=== PATIENT | male | born 1950 | race Caucasian/White ===

== ENCOUNTER 2019-12-27 09:25 | Day surgery (SDC) | payer MEDICARE, OTHER, SELFPAY ==
[2019-12-21 09:46] VITALS: BMI 29.7
--- NOTE | 2019-12-24 12:01 | HO.ANESPROP2 ---
Documented by User: Misty Rosario 12/24/19 14:34 HPI - Anesthesia Eval Consult details Narrative: 69yo M for Colonoscopy [facility] Past Medical History Medical History (Updated 12/21/19 @ 09:36 by Ana Somers) Anxiety CAD (coronary artery disease) Diabetes Elevated cholesterol History of prostate cancer HTN (hypertension) Myocardial infarction On beta huy at home SLY (obstructive sleep apnea) Surgical History Surgical History (Updated 12/21/19 @ 09:36 by Ana Somers) History of surgical removal of pilonidal cyst Hx of colonoscopy Hx of prostatectomy Social History Social History Advance Directives: No Narrative Narrative: Follows cardiology yearly. Last visit 11/2018. Stable/baseline per OV note. Meds Allergies Allergy/AdvReac Type Severity Reaction Status Date / Time No Known Allergies Allergy Mild NONE Verified 12/27/19 09:37 Home Medications Medication Instructions Recorded Confirmed Type aspirin [Aspir-81] 81 mg PO DAILY 12/21/19 12/21/19 History atorvastatin 80 mg PO DAILY 12/21/19 12/21/19 History citalopram 20 mg PO DAILY 12/21/19 12/21/19 History lorazepam See Rx Instructions .ROUTE 12/21/19 12/21/19 History .COMPLEX PRN metformin 500 mg PO BID 12/21/19 12/21/19 History metoprolol tartrate 25 mg PO DAILY 12/21/19 12/27/19 History Exam Exam Date and Time: December 24, 2019 1201 Height,Weight and Vital Signs: Height 5 ft 9 in Weight 91.172 kg Pertinent Lab Results Pertinent Lab Results: EKG 2019 NSR @ 80. ?LAE Documented by User: Shelli Fish 12/27/19 09:58 [facility] Past Medical History Medical History (Updated 12/21/19 @ 09:36 by Ana Somers) Anxiety CAD (coronary artery disease) Diabetes Elevated cholesterol History of prostate cancer HTN (hypertension) Myocardial infarction On beta huy at home SLY (obstructive sleep apnea) Surgical History Surgical History (Updated 12/21/19 @ 09:36 by Ana Somers) History of surgical removal of pilonidal cyst Hx of colonoscopy Hx of prostatectomy Social History Social History Advance Directives: No Meds Allergies Allergy/AdvReac Type Severity Reaction Status Date / Time No Known Allergies Allergy Mild NONE Verified 12/27/19 09:37 Home Medications Medication Instructions Recorded Confirmed Type aspirin [Aspir-81] 81 mg PO DAILY 12/21/19 12/21/19 History atorvastatin 80 mg PO DAILY 12/21/19 12/21/19 History citalopram 20 mg PO DAILY 12/21/19 12/21/19 History lorazepam See Rx Instructions .ROUTE 12/21/19 12/21/19 History .COMPLEX PRN metformin 500 mg PO BID 12/21/19 12/21/19 History metoprolol tartrate 25 mg PO DAILY 12/21/19 12/27/19 History Exam Airway Mallampati Class: II TM Dist: >3cm Neck ROM: Full Loose/Missing/Broken Teeth: No Heart: RRR Lungs: CTA BL Assessment and Plan Assessment Anesthesia Assessment: Anesthesia Plan Discussed and Consent Obtained Final Anesthetic Review NPO: Yes (Sip water with meds) ASA Class: II Final Preanesthetic Review: No Changes in Pt Med Stat, Meds & Allergies Reviewed, Consent Obtained/Reviewed and Anes Risks/Benef Reviewed Patient Risk: Low Procedure Risk: Low Anesthetic Plan Anesthetic Plan: MAC: Disposition: Standard PACU
[2019-12-27 10:03] LABS: Glucose, Whole Blood 101 mg/dL (60-115)
[2019-12-27] MEDS: Lactated Ringers 1,000 ML 100 ML IVCONT (10:10)
[2019-12-27 10:59] VITALS: BP 99/55; PULSE 54; RESP 12; TEMP 36.2; O2SAT 94
--- NOTE | 2019-12-27 11:03 | HO.POSTANES ---
Post Anesthesia Evaluation Post Anesthesia Evaluation Vital Signs: stable Anesthesia: Monitored
[2019-12-27 11:14] VITALS: BP 115/75; O2SAT 96
--- NOTE | 2019-12-27 11:20 | OP_ITS ---
SURGEON: Vahe Schreiber MD PREOPERATIVE DIAGNOSIS: Colorectal cancer screening. POSTOPERATIVE DIAGNOSIS: PROCEDURE PERFORMED: Colonoscopy to the cecum and terminal ileum with snare polypectomy, and placement of resolution clips x2. ESTIMATED BLOOD LOSS: COMPLICATIONS: ANESTHESIA: Monitored anesthesia care. ASSISTANTS: SPECIMENS: POSTOPERATIVE DIAGNOSES: Colorectal cancer screening, colon polyps, diverticulosis and internal hemorrhoids. DESCRIPTION OF PROCEDURE: The patient was placed in the left lateral decubitus position. The digital rectal exam revealed no abnormalities. The Olympus video pediatric colonoscope was entered into the rectum and advanced easily to the cecum. Once in the cecum, I did identify normal-appearing cecal pouch with appendiceal orifice and a normal-appearing ileocecal valve. The terminal ileum was cannulated and appeared normal. Scope was withdrawn back in the colon. The entire cecum and ileocecal valve appeared normal. The scope was slowly withdrawn assessing all mucosal surfaces carefully. Preparation was excellent. At 20 cm, were 2 approximately 6 mm polyps, which were each snared and recovered by suction. At least one of them appeared to be grossly adenomatous. Both polypectomy sites appeared clean, without any sign of residual polyp nor bleeding, but I did place a resolution clip onto each site given the fact that he has to remain on aspirin in relation to underlying coronary artery disease. I did not visualize any other polyps, colitis, nor angiodysplasia. There was a moderate amount of sigmoid diverticulosis. In the rectum, scope was retroflexed visualizing internal hemorrhoids, but no other pathology. The rectal mucosa appeared normal. The scope was straightened and withdrawn from the patient. He tolerated the procedure well and was returned to the recovery area in stable condition. IMPRESSION: 1. Colon polyps, status post snare polypectomy, and placement of resolution clips. 2. Diverticulosis. 3. Internal hemorrhoids. PLAN: The results of the pathology will be checked. If these are tubular adenoma, I would recommend a followup colonoscopy in 5 years. If it is only hyperplastic, I would recommend a followup colonoscopy in 10 years. He was advised that he could resume his aspirin today. MD CHAD Gonzalze/DANIELE / [phone]
--- NOTE | 2019-12-27 11:45 | HO.POSTANES ---
Post Anesthesia Evaluation Post Anesthesia Evaluation Vital Signs: Vital Signs Temp Pulse Resp BP Pulse Ox 12/27/19 11:14 115/75 96 12/27/19 10:59 97.2 F 54 12 99/55 L 94 Anesthesia: Monitored Mental Status: Awake Pain Control: Satisfactory Nausea/Vomiting: None Hydration: Adequate Anesthesia-Related Issues: No Anes. Related Issues
== END 2019-12-27 11:58 | disposition home or self-care (01) ==
PROVIDERS: PCP Internal Medicine; Visit Provider Internal Medicine
PROC: 0DJD8ZZ Inspection of Lower Intestinal Tract, Via Natural or Artificial Opening Endoscopic (ICD-10-PCS; CPT 45378; principal; 2019-12-27 10:30)
DX: Z12.11 Encounter for screening for malignant neoplasm of colon (principal); D12.5 Benign neoplasm of sigmoid colon; K57.30 Diverticulosis of large intestine without perforation or abscess without bleeding; K64.8 Other hemorrhoids; I25.10 Atherosclerotic heart disease of native coronary artery without angina pectoris; I10 Essential (primary) hypertension; E78.5 Hyperlipidemia, unspecified; E11.9 Type 2 diabetes mellitus without complications; G47.30 Sleep apnea, unspecified; E66.9 Obesity, unspecified; Z85.46 Personal history of malignant neoplasm of prostate; Z79.82 Long term (current) use of aspirin; Z79.02 Long term (current) use of antithrombotics/antiplatelets; Z79.84 Long term (current) use of oral hypoglycemic drugs; Z79.899 Other long term (current) drug therapy
CPT/HCPCS: 45385; 82947; 88305

== ENCOUNTER 2020-01-13 10:08 | Outpatient (REF) | payer MEDICARE, OTHER, SELFPAY ==
[2020-01-13 11:14] LABS: Estimated Average Glucose 131 mg/dL; Hemoglobin A1c % 6.2 %
[2020-01-13 11:24] LABS: Glucose Fasting 113 mg/dL (60-99)
[2020-01-13 11:47] LABS: Prostate Specific Antigen < 0.05 ng/mL (<0.05-4.0)
== END 2020-01-13 10:09 | disposition home or self-care (01) ==
LOC: HO.LAB 10:08
PROVIDERS: Absent Provider Urology; PCP Internal Medicine; Visit Provider Internal Medicine
DX: E11.40 Type 2 diabetes mellitus with diabetic neuropathy, unspecified (principal); C61 Malignant neoplasm of prostate
CPT/HCPCS: 82947; 83036; 84153

== ENCOUNTER 2020-02-28 13:59 | Outpatient (REF) | payer MEDICARE, OTHER, SELFPAY ==
[2020-02-28 14:53] LABS: MANUAL DIFF FLAG NO
[2020-02-28 14:55] LABS: Basophils Percent Auto 0.2 % (0-2); Eosinophils Absolute Auto 0.2 X10*3/uL (0.0-0.4); Eosinophils Percent Auto 4.6 % (0-4); Hematocrit 44.2 % (42-52); Hemoglobin 14.9 g/dl (14.0-18.0); Imm Gran Abs Auto 0.01 X10*3/uL (0.00-0.03); Imm Gran Pct Auto 0.2 % (0.0-0.4); Lymphocytes Absolute Auto 1.8 X10*3/uL (1.2-4.9); Lymphocytes Percent Auto 39.3 % (20-40); Mean Corpuscular HGB Conc 33.7 g/dl (31.0-36.0); Mean Corpuscular Hemoglobin 30.1 pg (27.0-33.0); Mean Corpuscular Volume 89.3 fL (80-98); Mean Platelet Volume 10.9 fL (9.4-12.4); Monocytes Absolute Auto 0.7 X10*3/uL (0.1-1.2); Monocytes Percent Auto 14.8 % (2-11); Neutrophils Absolute Auto 1.9 X10*3/uL (2.0-8.3); Neutrophils Percent Auto 40.9 % (45-73); Platelet Count 186 X10*3/uL (160-400); Red Blood Count 4.95 X10*6/uL (4.60-5.80); Red Cell Distribution Width 12.4 % (11.0-16.0); White Blood Count 4.6 X10*3/uL (4.8-10.8)
[2020-02-28 15:07] LABS: Glucose Urine UA NEG (NEG); Leukocyte Esterase Urine NEG (NEG); Nitrite Urine NEG (NEG); PH 5.5 (5.0-8.0); Specific Gravity - Urine >= 1.030 (1.005-1.025); Urine Blood TRACE (NEG); Urine Ketones NEG (NEG); Urine Protein NEG (NEG-TRACE)
[2020-02-28 15:08] LABS: Appearance Urine CLEAR; Color Urine YELLOW
[2020-02-28 15:13] LABS: Estimated Average Glucose 137 mg/dL; Hemoglobin A1c % 6.4 %
[2020-02-28 15:18] LABS: RBC Urine 0 /HPF (0); WBC Urine 0 /HPF (0-4)
[2020-02-28 15:32] LABS: Alanine Aminotransferase 25 U/L (0-40); Albumin Level 4.5 g/dL (3.5-5.0); Alkaline Phosphatase 87 U/L (39-117); Anion Gap 14 (12-20); Aspartate Amino Transferase 25 U/L (5-37); Bilirubin Total 1.2 mg/dL (0.0-1.0); Blood Urea Nitrogen 22 mg/dL (9-16); Calcium 9.1 mg/dL (8.4-10.2); Carbon Dioxide 28 mmol/L (22-29); Chloride 101 mmol/L (96-108); Cholesterol 116 mg/dL; Estimated Glomerular Filt Rate > 60; Glucose Fasting 101 mg/dL (60-99); HDL Cholesterol 30 mg/dL; LDL Cholesterol Calculated 60 mg/dl; Potassium 4.5 mmol/l (3.3-5.1); Sodium 138 mmol/L (135-145); Total Protein 7.1 g/dL (6.5-8.0); Triglycerides 133 mg/dL
[2020-02-28 15:32] LABS: Creatinine Urine 184.13 mg/dL; Microalbum/Creatinine Ratio Ur 6.5 ug/mg cr
[2020-02-28 15:57] LABS: Prostate Specific Antigen < 0.05 ng/mL (<0.05-4.0)
[2020-02-28 15:58] LABS: Reflex LDLD? No
== END 2020-02-28 14:00 | disposition home or self-care (01) ==
LOC: HO.LAB 13:59
PROVIDERS: PCP Internal Medicine; Visit Provider Internal Medicine
DX: E11.40 Type 2 diabetes mellitus with diabetic neuropathy, unspecified (principal); I25.2 Old myocardial infarction; G47.33 Obstructive sleep apnea (adult) (pediatric); Z95.5 Presence of coronary angioplasty implant and graft; Z85.46 Personal history of malignant neoplasm of prostate
CPT/HCPCS: 36415; 80053; 80061; 81001; 81003; 82043; 83036; 84153; 85025

== ENCOUNTER 2020-07-27 14:25 | Emergency (ER) | payer MEDICARE, OTHER, SELFPAY ==
--- NOTE | ~2020-07-27 | MR_ITS ---
EXAMINATION: MR BRAIN WITHOUT CONTRAST CLINICAL INFORMATION: Dizziness. Evaluate posterior stroke. COMPARISON: None available. TECHNIQUE: Multiplanar, multisequence imaging of the brain was performed without intravenous contrast. FINDINGS: There is no acute infarction, mass, hemorrhage, or extra-axial collection. The ventricles, sulci, and basilar cisterns are normal in size and configuration. A few minimal nonspecific foci of T2/FLAIR hyperintensity are seen in the cerebral white matter. The flow voids of the major intracranial arteries appear intact. The bones and extracranial soft tissues are unremarkable. MR/MR head/brain wo con IMPRESSION: No acute infarct, mass lesion, intracranial hemorrhage, or evidence of hydrocephalus.
--- NOTE | ~2020-07-27 | CT_ITS ---
EXAMINATION: CT angio head neck CLINICAL INFORMATION: Dizziness. Neck pain. COMPARISON: Brain MRI 07/27/2020. TECHNIQUE: Fiber Design Engineer images were obtained. A CT angiogram of the head and neck was performed in the arterial phase after the intravenous administration of 70 mL Omnipaque 350. Pre and delayed postcontrast images of the head were also obtained. MIP reconstructions were generated in multiple orientations at the acquisition workstation. Multiple three-dimensional surface rendered images and maximum intensity projection images were generated on a dedicated 3-D lab workstation. Arterial stenoses are measured in accordance with NASCET criteria or similar method if applicable. This CT examination was performed using dose optimization techniques as appropriate, including one or more of the following: Automated exposure control, iterative reconstruction, and adjustment of technique factors (mA and/or kVp) according to patient size (this includes techniques or standardized protocols for targeted exams where dose is matched to indication/reason for exam). Total exam dose-length product 2708 mGy-cm FINDINGS: Head: There is no acute intracranial hemorrhage or abnormal extra-axial collection. Postcontrast images reveal no abnormal mass or enhancement within the intracranial compartment. No intracranial mass effect or midline shift. Lateral and third ventricles are normal. No hydrocephalus. Ortiz-white matter differentiation is preserved and there is no evidence of acute territorial infarct. The calvarium and skull base are intact. Mastoid air cells and middle ear cavities are well aerated. No active paranasal sinus disease. CT angiogram neck: The aortic arch apex is normal. Origins of the major aortic branches are widely patent. Common carotid arteries are normal. Heavily calcified atheromatous plaque involves both carotid bifurcations. No stenosis of the extracranial internal carotid arteries. The cervical segments of the vertebral arteries as well as their origins are patent. CT angiogram head: Patient motion degrades image quality on this component of the examination. Intracranial internal carotid arteries are patent. The intradural vertebral artery segments and basilar artery are patent. Posterior cerebral artery complexes are unremarkable. The anterior and middle cerebral artery complexes are suboptimally assessed. Other: Soft tissues of the neck including the thyroid gland are normal. Visualized lung apices are clear. No acute osseous finding. CT/CT angio head neck IMPRESSION: Patient motion degrades image quality therefore the diagnostic accuracy of this examination is somewhat limited. Specifically the anterior and middle cerebral artery complexes are not well assessed. Otherwise no large vessel occlusion. No stenosis of the cervical carotid or vertebral arteries. No evidence of acute territorial infarct. No abnormal intracranial mass or enhancement.
[2020-07-27 14:34] VITALS: BP 122/65; BP 142/72; PULSE 71; PULSE 82; RESP 18; TEMP 36.6; O2SAT 98; O2SAT 99; BMI 31.9
[2020-07-27 14:41] VITALS: BP 120/61; PULSE 70; RESP 17; TEMP 36.6; O2SAT 98
[2020-07-27 14:42] LABS: Glucose, Whole Blood 152 mg/dL (60-115)
--- NOTE | 2020-07-27 14:48 | ECG_ITS ---
Test Reason : DIZZINESS Blood Pressure : / mmHG Vent. Rate : 074 BPM Atrial Rate : 074 BPM P-R Int : 184 ms QRS Dur : 100 ms QT Int : 436 ms P-R-T Axes : 034 031 072 degrees QTc Int : 483 ms Normal sinus rhythm Prolonged QT Abnormal ECG When compared with ECG of 06-MAY-2007 15:48, QT has lengthened Referred By: Concepcion Johnson Electronically Signed By:RAMA DEGROOT
--- NOTE | 2020-07-27 14:51 | ED_ITS ---
HPI - Dizziness General Chief Complaint: Nausea/Vomiting/Diarrhea Stated Complaint: nausea/dizzy Time Seen by Provider: 07/27/20 14:37 Source: patient and EMS Mode of arrival: EMS Limitations: no limitations History of Present Illness MD elicited complaint: dizziness, lightheadedness and difficulty walking Onset (ago): hour(s) (1pm today) Timing: sudden onset Description: room spinning and lightheadedness Context: change in body position History of similar symptoms: No Exacerbating factors: movement/ambulation and change in body position Relieving factors: nothing Associated symptoms: nausea and vomiting Associated neuro symptoms: other (difficulty walking) Related Data Home Medications Medication Instructions Recorded Confirmed aspirin [Aspir-81] 81 mg PO DAILY 12/21/19 12/21/19 atorvastatin 80 mg PO DAILY 12/21/19 12/21/19 citalopram 20 mg PO DAILY 12/21/19 12/21/19 lorazepam See Rx Instructions .ROUTE 12/21/19 12/21/19 .COMPLEX PRN metformin 500 mg PO BID 12/21/19 12/21/19 metoprolol tartrate 25 mg PO DAILY 12/21/19 12/27/19 Allergies Allergy/AdvReac Type Severity Reaction Status Date / Time No Known Allergies Allergy Mild NONE Verified 12/27/19 09:37 Review of Systems Review of Systems: Constitutional : No Weight loss, No Fever, No Chills, No Fatigue, No Malaise ENT/Mouth : No sore throat, No Rhinorrhea Eyes: No Eye Pain, No Swelling, No Redness, no vision changes Cardiovascular : No Chest Pain, No SOB, No Dyspnea on Exertion, No Orthopnea, No Edema, No Palpitations Respiratory : No Cough, No Sputum, No Wheezing Gastrointestinal : pos Nausea, pos Vomiting, No Diarrhea, No Constipation, No abdominal Pain, No Hematochezia, No Melena Genitourinary : No Dysuria, No Urinary Frequency, No Hematuria, Musculoskeletal : No joint pain, No Myalgias, No Joint Swelling Skin : No Skin Lesions, No rash Neuro : No Weakness, No Numbness, pos Dizziness, No Headache Psych : No Anxiety/Panic, No Depression Heme/Lymph: No Bruising, No Bleeding,No Lymphadenopathy Endocrine : No Polyuria, No Polydipsia All other systems reviewed and are negative PMFSH Past Medical History Attestation statement: The following information was validated with the patient. Medical History Anxiety CAD (coronary artery disease) Diabetes Elevated cholesterol History of prostate cancer HTN (hypertension) Myocardial infarction On beta huy at home SLY (obstructive sleep apnea) Surgical History (Updated 12/21/19 @ 09:36 by Ana Somers) History of surgical removal of pilonidal cyst Hx of colonoscopy Hx of prostatectomy Social History Social History (Updated 07/27/20 @ 15:01 by Concepcion Johnson DO) Smoking Status: Never smoker Use of substances other than those prescribed or required for medical reasons: No Advance Directives: No Advance Directives Information Provided: Yes Physical Exam Vital Signs: Vital Signs: Last Vital Signs Temp 98 F 07/27/20 14:41 Pulse 79 07/27/20 15:40 Resp 14 07/27/20 15:40 BP 111/60 07/27/20 15:40 Pulse Ox 98 07/27/20 14:41 Body Mass Index 31.9 Appearance: Alert. Oriented X3. No acute distress. Eyes: Pupils equal, round and reactive to light. ENT: Pharynx normal. Neck: Normal inspection. Neck supple. CVS: Normal heart rate and rhythm. Pulses normal. Respiratory: No respiratory distress. Breath sounds normal. Abdomen: Soft and nontender. Skin: Skin warm and dry. pale skin color. Normal skin turgor. Extremities: No lower extremity edema. No calf ttp Neuro: Oriented X 3. CN intact, UE intact, LE intact but cannot ambulate. No sensory deficit. NIH Stroke Scale Internal: Initial- Upon Arrival Level of Consciousness: Alert Level of Consciousness Questions: Answers both questions correctly Level of Consciousness Commands: Performs both tasks correctly Best Gaze: Normal Visual: No visual loss Facial Palsy: Normal Motor Arm (Right): No drift Motor Arm (Left): No drift Motor Leg (Right): No drift Motor Leg (Left): No drift Limb Ataxia: Present in two limbs (unable to ambulate ) Sensory: Normal Best Language: No aphasia Dysarthia: Normal Extinction and Inattention: No abnormality Score: 2 Course Course Course Narrative: enrollment coordinator aware - MRI negative CTA ordered for carotid disease given symptoms worse with bending over and some neck pain signed out to Dr. Gonzalez MDM - Dizziness [facility] Narrative Medical decision making narrative: 70 yo male with hx of DM, anxiety, HPL, CAD s/p stent to RCA in 2013 comes in with abrupt onset dizziness at 1pm c/o n/v as well no CP/SOB states he cannot walk, on exam patient is diaphoretic, BS in normal limits no CP/SOB but he cannot ambulate and orthostatics negative at this time - stat MRI ordered for posterior stroke patient to be taken upon me evaluating him in ED Lab Data Labs: Lab Results 07/27/20 Range/Units 14:38 POC Glucose 152 H (60-115) mg/dL ECG Data Attestation: I personally reviewed and interpreted this ECG as follows: ECG interpretation date: 07/27/20 ECG interpretation time: 14:57 Interpretation: Rate: 74 Rhythm: NSR [place]: normal Normal P waves. Normal TARA. Normal QRS complex. Poor R wave progression ST T wave : no SET, nonspecific , no DINO qTC: normal prior studies: no acute ischemia The study has been interpreted contemporaneously by me. . Discharge Plan Discharge Clinical Impression: Dizziness Prescriptions: No Action metformin 500 mg Tablet 500 mg PO BID RF: 0 atorvastatin 80 mg Tablet 80 mg PO DAILY RF: 0 aspirin [Aspir-81] 81 mg Tablet,Delayed Release (Dr/Ec) 81 mg PO DAILY RF: 0 citalopram 20 mg Tablet 20 mg PO DAILY RF: 0 lorazepam 0.5 mg Tablet See Rx Instructions .ROUTE .COMPLEX PRN (Reason: Anxiety) RF: 0 metoprolol tartrate 25 mg Tablet 25 mg PO DAILY RF: 0
[2020-07-27] MEDS: ondansetron HCL 4 MG/2 ML VIAL IVPUSH (15:13)
[2020-07-27 15:40] VITALS: BP 111/60; PULSE 79; RESP 14
[2020-07-27] MEDS: 0.9 % Sodium Chloride 500 ML IV (15:59)
--- NOTE | 2020-07-27 16:05 | MHC.STROKE ---
EMS PRE-NOTIFIED AT 1415 DIZZY, N/V. ONSET AT 1300. HE CANNOT SIT UP. ARRIVED AT 1425. EXAMINED BY DR MYERS AND STAT MRI ORDERED TO R/O CEREBELLAR STROKE, STILL IN THE WINDOW FOR TPA. DR ROD WAS NOTIFIED. MRI DID NOT REVEAL ANY ACUTE LESION. I DID RELAY THIS TO THE PATIENT AND HIS . HE HAS MULTIPLE RISK FACTORS FOR VASCULAR DISEASE INCLUDING ME, CAD, HTN, DM, SLY, HLD. THE PATIENT EXPLAINED THAT HE OFTEN GET DIZZY WHEN GETTING UP FROM A LYING OR SITTING POSITION. DR MYERS IS ORDERING A CTA H/N. I DID RELAY THIS INFORMATION TO DR. ROD AND I EXPLAINED THE CTA AND REASON FOR THE TEST TO THE PATIENT AND HIS . I ANSWERED ALL OF THEIR QUESTIONS. I WILL CONTINUE TO FOLLOW.
[2020-07-27 16:21] LABS: MANUAL DIFF FLAG NO
[2020-07-27 16:27] LABS: Basophils Percent Auto 0.1 % (0-2); Eosinophils Percent Auto 0.4 % (0-4); Hematocrit 37.1 % (42-52); Hemoglobin 12.6 g/dl (14.0-18.0); Imm Gran Abs Auto 0.04 X10*3/uL (0.00-0.03); Imm Gran Pct Auto 0.4 % (0.0-0.4); Lymphocytes Absolute Auto 0.8 X10*3/uL (1.2-4.9); Lymphocytes Percent Auto 8.4 % (20-40); Mean Corpuscular Hemoglobin 28.8 pg (27.0-33.0); Mean Corpuscular Volume 84.7 fL (80-98); Monocytes Absolute Auto 0.6 X10*3/uL (0.1-1.2); Neutrophils Absolute Auto 8.4 X10*3/uL (2.0-8.3); Neutrophils Percent Auto 84.7 % (45-73); Platelet Count 185 X10*3/uL (160-400); Red Blood Count 4.38 X10*6/uL (4.60-5.80); Red Cell Distribution Width 12.8 % (11.0-16.0); White Blood Count 9.9 X10*3/uL (4.8-10.8)
[2020-07-27 16:31] LABS: INTERNATIONAL NORM RATIO 1.1 (0.9-1.1); Prothrombin Time 13.2 SEC (10.8-13.0)
[2020-07-27 16:33] LABS: COVID-19 Test Negative (Negative); IDNOW Serial# 9DD0AD1C
[2020-07-27 16:33] LABS: Partial Thromboplastin Time 32.2 SEC (24.1-38.0)
[2020-07-27 16:56] LABS: Anion Gap 12 (12-20); Blood Urea Nitrogen 19 mg/dL (9-16); Calcium 9.1 mg/dL (8.4-10.2); Carbon Dioxide 26 mmol/L (22-29); Chloride 104 mmol/L (96-108); Creatinine Clr Calc Pharmacy 97.7; Estimated Glomerular Filt Rate > 60; Glucose Random 129 mg/dL (60-115); Potassium 3.6 mmol/L (3.3-5.1); Sodium 138 mmol/L (135-145)
[2020-07-27] MEDS: Meclizine HCl 25 MG TABLET PO ×2 (16:58→18:54)
[2020-07-27 17:01] LABS: Alanine Aminotransferase 16 U/L (0-40); Albumin Level 3.9 g/dL (3.5-5.0); Alkaline Phosphatase 105 U/L (39-117); Aspartate Amino Transferase 16 U/L (5-37); Bilirubin Direct 0.2 mg/dL (0.0-0.5); Bilirubin Total 0.6 mg/dL (0.0-1.0); Lipase 25 U/L (8-78); Magnesium 2.1 mg/dL (1.6-2.6); Total Protein 6.2 g/dL (6.5-8.0)
[2020-07-27 17:04] LABS: Troponin-I High Sensitivity < 3.5 ng/L (<3.5-35.0)
[2020-07-27] MEDS: iohexoL 350 MG/ML 100 ML INFUS..BTL IV (17:35)
[2020-07-27 18:36] VITALS: BP 142/83; PULSE 66; RESP 12; O2SAT 97
--- NOTE | 2020-07-27 18:38 | PC.NURSE ---
Pt reports decreased dizziness and denies nausea. Gait is somewhat unsteady. VSS, skin w/p/d, rr even and unlabored.
[2020-07-27] MEDS: LORazepam 0.5 MG TABLET PO (18:54)
== END 2020-07-27 19:13 | disposition home or self-care (01) ==
PROVIDERS: Emergency Provider Emergency Medicine; PCP Internal Medicine
DX: R42 Dizziness and giddiness (principal); R11.2 Nausea with vomiting, unspecified; R29.702 NIHSS score 2; F41.1 Generalized anxiety disorder; F43.0 Acute stress reaction; Z20.822 Contact with and (suspected) exposure to COVID-19; R26.2 Difficulty in walking, not elsewhere classified; I25.10 Atherosclerotic heart disease of native coronary artery without angina pectoris; Z79.899 Other long term (current) drug therapy
CPT/HCPCS: 36415; 70496; 70498; 70551; 80048; 80076; 82947; 83690; 83735; 84484; 85025; 85610; 85730; 87635; 93005; 96361; 96365; 96375; 99285; J2405; Q9967

== ENCOUNTER 2020-09-05 09:47 | Outpatient (REF) | payer MEDICARE, OTHER, SELFPAY ==
[2020-09-05 10:26] LABS: Estimated Average Glucose 126 mg/dL
[2020-09-05 11:22] LABS: Alanine Aminotransferase 6 U/L (0-40); Albumin Level 3.9 g/dL (3.5-5.0); Alkaline Phosphatase 148 U/L (39-117); Aspartate Amino Transferase 15 U/L (5-37); Bilirubin Direct 0.2 mg/dL (0.0-0.5); Bilirubin Total 0.4 mg/dL (0.0-1.0); Cholesterol 103 mg/dL; Glucose Fasting 107 mg/dL (60-99); HDL Cholesterol 27 mg/dL; LDL Cholesterol Calculated 55 mg/dl; Total Protein 6.4 g/dL (6.5-8.0); Triglycerides 105 mg/dL
[2020-09-05 12:20] LABS: Reflex LDLD? No
== END 2020-09-05 09:48 | disposition home or self-care (01) ==
LOC: HO.LNP 09:47
PROVIDERS: Visit Provider Internal Medicine
DX: E11.9 Type 2 diabetes mellitus without complications (principal); E78.6 Lipoprotein deficiency
CPT/HCPCS: 80061; 80076; 82947; 83036

== ENCOUNTER 2021-03-20 10:19 | Outpatient (REF) | payer MEDICARE, OTHER, SELFPAY ==
[2021-03-20 10:23] LABS: MANUAL DIFF FLAG NO
[2021-03-20 10:42] LABS: Basophils Percent Auto 0.2 % (0-2); Eosinophils Absolute Auto 0.2 X10*3/uL (0.0-0.4); Eosinophils Percent Auto 4.1 % (0-4); Hematocrit 41.8 % (42.0-52.0); Hemoglobin 14.3 g/dl (14.0-18.0); Imm Gran Abs Auto 0.03 X10*3/uL (0.00-0.03); Imm Gran Pct Auto 0.7 % (0.0-0.4); Lymphocytes Absolute Auto 1.7 X10*3/uL (1.2-4.9); Lymphocytes Percent Auto 36.7 % (20-40); Mean Corpuscular HGB Conc 34.2 g/dl (31.0-36.0); Mean Corpuscular Hemoglobin 29.7 pg (27.0-33.0); Mean Corpuscular Volume 86.9 fL (80.0-98.0); Mean Platelet Volume 11.5 fL (9.4-12.4); Monocytes Absolute Auto 0.6 X10*3/uL (0.1-1.2); Monocytes Percent Auto 13.9 % (2-11); Neutrophils Absolute Auto 2.1 x10*3/uL (2.0-8.3); Neutrophils Percent Auto 44.4 % (45-73); Platelet Count 187 X10*3/uL (160-400); Red Blood Count 4.81 X10*6/uL (4.60-5.80); Red Cell Distribution Width 12.6 % (11.0-16.0); White Blood Count 4.6 X10*3/uL (4.8-10.8)
[2021-03-20 10:43] LABS: Appearance Urine HAZY; Color Urine YELLOW; Glucose Urine UA NEG (NEG); Leukocyte Esterase Urine NEG (NEG); Nitrite Urine NEG (NEG); Specific Gravity - Urine >= 1.030 (1.005-1.025); Urine Blood TRACE (NEG); Urine Ketones NEG (NEG); Urine Protein TRACE MG/DL (NEG-TRACE)
[2021-03-20 10:57] LABS: WBC Urine 0 /HPF (0-4)
[2021-03-20 10:58] LABS: Mucus Urine 3+ /LPF; Squamous Epithelial Cell Urine 1+ /LPF
[2021-03-20 11:35] LABS: Creatinine Urine 300.09 mg/dL; Microalbum/Creatinine Ratio Ur 14.9 ug/mg cr
[2021-03-20 12:49] LABS: Estimated Average Glucose 143 mg/dL; Hemoglobin A1c % 6.6 %
[2021-03-20 12:55] LABS: Alanine Aminotransferase 24 U/L (0-40); Albumin Level 4.2 g/dL (3.5-5.0); Alkaline Phosphatase 104 U/L (39-117); Anion Gap 14 (12-20); Aspartate Amino Transferase 21 U/L (5-37); Bilirubin Total 0.7 mg/dL (0.0-1.0); Blood Urea Nitrogen 17 mg/dL (9-16); Calcium 9.6 mg/dL (8.4-10.2); Carbon Dioxide 25 mmol/L (22-29); Chloride 105 mmol/L (96-108); Estimated Glomerular Filt Rate > 60; Glucose Fasting 143 mg/dL (60-99); Potassium 3.9 mmol/L (3.3-5.1); Sodium 140 mmol/L (135-145); Total Protein 6.8 g/dL (6.5-8.0)
[2021-03-20 13:18] LABS: PSA,Total (Free>4and<10) < 0.05 ng/mL (0.00-4.00)
== END 2021-03-20 10:20 | disposition home or self-care (01) ==
LOC: HO.LNP 10:19
PROVIDERS: Visit Provider Internal Medicine
DX: R74.8 Abnormal levels of other serum enzymes (principal); E78.6 Lipoprotein deficiency; E11.40 Type 2 diabetes mellitus with diabetic neuropathy, unspecified; Z12.5 Encounter for screening for malignant neoplasm of prostate
CPT/HCPCS: 80053; 81001; 82043; 83036; 84153; 85025

== ENCOUNTER 2021-04-26 11:19 | Outpatient (REF) | payer MEDICARE, OTHER, SELFPAY ==
[2021-04-26 12:31] LABS: Blood Urea Nitrogen 17 mg/dL (9-16); Estimated Glomerular Filt Rate > 60
[2021-04-26 12:42] LABS: Prostate Specific Antigen < 0.05 ng/mL (<0.05-4.0)
== END 2021-04-26 11:20 | disposition home or self-care (01) ==
LOC: HO.LAB 11:19
PROVIDERS: PCP Internal Medicine; Visit Provider Urology
DX: Z12.5 Encounter for screening for malignant neoplasm of prostate (principal); R39.15 Urgency of urination
CPT/HCPCS: 36415; 82565; 84153; 84520

== ENCOUNTER 2021-09-27 10:46 | Outpatient (REF) | payer MEDICARE, OTHER, SELFPAY ==
[2021-09-27 11:20] LABS: Alanine Aminotransferase 18 U/L (0-40); Albumin Level 4.2 g/dL (3.5-5.0); Alkaline Phosphatase 101 U/L (39-117); Aspartate Amino Transferase 20 U/L (5-37); Bilirubin Direct 0.3 mg/dL (0.0-0.5); Bilirubin Total 0.7 mg/dL (0.0-1.0); Cholesterol 133 mg/dL; Glucose Fasting 139 mg/dL (60-99); HDL Cholesterol 27 mg/dL; LDL Cholesterol Calculated 56 mg/dl; Total Protein 6.6 g/dL (6.5-8.0); Triglycerides 253 mg/dL
[2021-09-27 11:22] LABS: Estimated Average Glucose 140 mg/dL; Hemoglobin A1c % 6.5 %
[2021-09-27 12:56] LABS: Reflex LDLD? No
== END 2021-09-27 10:47 | disposition home or self-care (01) ==
LOC: HO.LNP 10:46
PROVIDERS: Visit Provider Internal Medicine
DX: E11.9 Type 2 diabetes mellitus without complications (principal); E78.6 Lipoprotein deficiency
CPT/HCPCS: 80061; 80076; 82947; 83036

== ENCOUNTER 2022-02-22 11:40 | Outpatient (REF) | payer MEDICARE, OTHER, SELFPAY ==
[2022-02-22 11:44] LABS: MANUAL DIFF FLAG NO
[2022-02-22 12:31] LABS: Appearance Urine Clear; Color Urine Yellow; Glucose Urine UA Negative (Negative); Leukocyte Esterase Urine Negative (Negative); Nitrite Urine Negative (Negative); PH 5.5 (5.0-9.0); Urine Blood Negative (Negative); Urine Ketones Negative (Negative); Urine Protein Negative (Neg-Trace)
[2022-02-22 12:37] LABS: Bacteria Urine None Seen (None Seen); Hyaline Casts Urine 0-2 /LPF (0-2); RBC Urine 0-2 /HPF (0-2); Squamous Epithelial Cell Urine 0-2 /HPF (0-2); WBC Urine 0-5 /HPF (0-5)
[2022-02-22 12:45] LABS: Basophils Percent Auto 0.4 % (0-2); Eosinophils Absolute Auto 0.3 X10*3/uL (0.0-0.4); Eosinophils Percent Auto 4.6 % (0-4); Hematocrit 42.1 % (42.0-52.0); Hemoglobin 14.3 g/dl (14.0-18.0); Imm Gran Abs Auto 0.03 X10*3/uL (0.00-0.03); Imm Gran Pct Auto 0.5 % (0.0-0.4); Lymphocytes Absolute Auto 2.3 X10*3/uL (1.2-4.9); Lymphocytes Percent Auto 39.6 % (20-40); Mean Corpuscular Hemoglobin 29.9 pg (27.0-33.0); Mean Corpuscular Volume 88.1 fL (80.0-98.0); Mean Platelet Volume 11.3 fL (9.4-12.4); Monocytes Absolute Auto 0.6 X10*3/uL (0.1-1.2); Monocytes Percent Auto 9.8 % (2-11); Neutrophils Absolute Auto 2.6 x10*3/uL (2.0-8.3); Neutrophils Percent Auto 45.1 % (45-73); Platelet Count 210 X10*3/uL (160-400); Red Blood Count 4.78 X10*6/uL (4.60-5.80); Red Cell Distribution Width 12.4 % (11.0-16.0); White Blood Count 5.7 X10*3/uL (4.8-10.8)
[2022-02-22 13:13] LABS: Estimated Average Glucose 137 mg/dL; Hemoglobin A1c % 6.4 %
[2022-02-22 13:34] LABS: Creatinine Urine 178.18 mg/dL
[2022-02-22 14:45] LABS: Alanine Aminotransferase 18 U/L (0-40); Albumin Level 4.1 g/dL (3.5-5.0); Alkaline Phosphatase 107 U/L (39-117); Anion Gap 10 (12-20); Aspartate Amino Transferase 23 U/L (5-37); Bilirubin Total 0.6 mg/dL (0.0-1.0); Blood Urea Nitrogen 19 mg/dL (9-16); Calcium 9.2 mg/dL (8.4-10.2); Carbon Dioxide 30 mmol/L (22-29); Chloride 98 mmol/L (96-108); Cholesterol 147 mg/dL; Estimated Glomerular Filt Rate > 60; Glucose Fasting 128 mg/dL (60-99); HDL Cholesterol 26 mg/dL; LDL Cholesterol Calculated 58 mg/dl; PSA,Total (Free>4and<10) < 0.10 ng/mL (0.00-4.00); Potassium 4.2 mmol/L (3.3-5.1); Sodium 134 mmol/L (135-145); Total Protein 6.7 g/dL (6.5-8.0); Triglycerides 315 mg/dL
== END 2022-02-22 11:41 | disposition home or self-care (01) ==
LOC: HO.LNP 11:40
PROVIDERS: Visit Provider Internal Medicine
DX: Z12.5 Encounter for screening for malignant neoplasm of prostate (principal); E11.9 Type 2 diabetes mellitus without complications; E78.6 Lipoprotein deficiency
CPT/HCPCS: 80053; 80061; 81001; 82043; 83036; 84153; 85025

== ENCOUNTER 2022-05-01 10:37 | Outpatient (REF) | payer MEDICARE, OTHER, SELFPAY ==
[2022-05-01 13:54] LABS: Prostate Specific Antigen < 0.10 ng/mL (<0.05-4.0)
== END 2022-05-01 10:38 | disposition home or self-care (01) ==
LOC: HO.LAB 10:37
PROVIDERS: PCP Internal Medicine; Visit Provider Physician Assistant Surgical
DX: C61 Malignant neoplasm of prostate (principal)
CPT/HCPCS: 36415; 84153

== ENCOUNTER 2022-08-29 11:05 | Outpatient (REF) | payer MEDICARE, OTHER, SELFPAY ==
[2022-08-29 11:41] LABS: Estimated Average Glucose 134 mg/dL; Hemoglobin A1C 164.2734 umol/L; Hemoglobin A1c % 6.3 %
[2022-08-29 11:43] LABS: Alanine Aminotransferase 21 U/L (0-40); Alkaline Phosphatase 100 U/L (39-117); Aspartate Amino Transferase 27 U/L (5-37); Bilirubin Direct 0.1 mg/dL (0.0-0.5); Bilirubin Total 0.5 mg/dL (0.0-1.0); Cholesterol 198 mg/dL; Glucose Fasting 141 mg/dL (60-99); HDL Cholesterol 27 mg/dL; Total Protein 6.4 g/dL (6.5-8.0); Triglycerides 553 mg/dL
[2022-08-29 12:42] LABS: Reflex LDLD? Yes
[2022-08-31 03:34] LABS: LDL Cholesterol Direct 70 mg/dL (<100)
== END 2022-08-29 11:06 | disposition home or self-care (01) ==
LOC: HO.LNP 11:05
PROVIDERS: Visit Provider Internal Medicine
DX: E11.9 Type 2 diabetes mellitus without complications (principal); E78.6 Lipoprotein deficiency
CPT/HCPCS: 80061; 80076; 82947; 83036; 83721

== ENCOUNTER 2023-02-10 08:33 | Day surgery (SDC) | payer MEDICARE, OTHER, SELFPAY ==
[2023-02-04 13:46] VITALS: BMI 32.7
--- NOTE | 2023-02-07 08:41 | MHC.SHP ---
Pre-Procedural Eval Section A Date of Service: 02/07/23 The patient is an INPATIENT: No Changes since office visit: No Cold of Flu in the past 2 weeks, No New Medical Problems, No Changes in Medication and No Patient answered all questions The History & Physical has been completed within 30 days and I have reviewed it.: Yes Section B Chief Complaint: Age-related nuclear cataract, left eye Allergies: Allergies Allergy/AdvReac Type Severity Reaction Status Date / Time No Known Allergies Allergy Mild NONE Verified 12/27/19 09:37 Plan Diagnosis/Plan: Unchanged I have reviewed the history and physical and performed a pertinent physical examination on my patient. No changes have occurred unless specified. Time Spent With Patient Time: Total time managing care of this patient today ____ minutes.
--- NOTE | 2023-02-07 09:10 | HO.ANESPROP2 ---
Documented by User: Misty Rosario NP 02/07/23 09:10 HPI - Anesthesia Eval Consult details Narrative: 72yo M for Left Cataract Extraction IOL Insertion Medically cleared No previous cataract on record PMFSH Past Medical History Medical History Vertigo COVID-19 Arthritis Psoriasis SLY (obstructive sleep apnea) Diabetes Anxiety History of prostate cancer On beta huy at home Elevated cholesterol CAD (coronary artery disease) HTN (hypertension) Myocardial infarction Family History Family history of problems with anesthesia: Unobtainable Surgical History Surgical History H/O wisdom tooth extraction History of coronary artery stent placement History of total bilateral knee replacement Hx of colonoscopy History of surgical removal of pilonidal cyst Hx of prostatectomy History of Problems with Anesthesia: Unobtainable Social History Social History Are you a primary adult care manager to a significant other at home: No Do you presently have visiting nurse or other home services: No Alcohol intake: never Patient Tobacco Use Status: Never used Tobacco Use of substances other than those prescribed or required for medical reasons: No Have you been hit, kicked, punched, or otherwise hurt by someone within the past year? If so, by whom?: No Advance Directives: No Advance Directives Information Provided: Yes Advance Directives on File: No Recently lost weight without trying: No Nutrition Risks: No Nutritional Risk Poor oral hygiene: No Meds Allergies Allergy/AdvReac Type Severity Reaction Status Date / Time No Known Allergies Allergy Mild NONE Verified 02/10/23 10:00 Home Medications Medication Instructions Recorded Confirmed Last Taken Type aspirin 81 mg tablet,delayed 81 mg PO DAILY 12/21/19 02/10/23 Unknown History release (Aspir-) atorvastatin 80 mg tablet 80 mg PO BEDTIME 12/21/19 02/10/23 Unknown History citalopram 20 mg tablet 20 mg PO DAILY 12/21/19 02/10/23 Unknown History metformin 500 mg tablet 500 mg PO BID 12/21/19 02/10/23 Unknown History metoprolol tartrate 25 mg tablet 12.5 mg PO BID 12/21/19 02/10/23 12/27/19 08:30 History Exam Height,Weight and Vital Signs: Height 5 ft 8 in Weight 97.522 kg Assessment and Plan Assessment Anesthesia Assessment: Chart Reviewed Final Anesthetic Review Family History of Problems with Anesthesia: Unobtainable History of Problems with Anesthesia: Unobtainable Documented by User: Mirta Caceres MD 02/10/23 11:19 [facility] Past Medical History Medical History Vertigo COVID-19 Arthritis Psoriasis SLY (obstructive sleep apnea) Diabetes Anxiety History of prostate cancer On beta huy at home Elevated cholesterol CAD (coronary artery disease) HTN (hypertension) Myocardial infarction Family History Family history of problems with anesthesia: No Surgical History Surgical History H/O wisdom tooth extraction History of coronary artery stent placement History of total bilateral knee replacement Hx of colonoscopy History of surgical removal of pilonidal cyst Hx of prostatectomy History of Problems with Anesthesia: No Social History Social History Are you a primary adult care manager to a significant other at home: No Do you presently have visiting nurse or other home services: No Alcohol intake: never Patient Tobacco Use Status: Never used Tobacco Use of substances other than those prescribed or required for medical reasons: No Have you been hit, kicked, punched, or otherwise hurt by someone within the past year? If so, by whom?: No Advance Directives: No Advance Directives Information Provided: Yes Advance Directives on File: No Recently lost weight without trying: No Nutrition Risks: No Nutritional Risk Poor oral hygiene: No Meds Allergies Allergy/AdvReac Type Severity Reaction Status Date / Time No Known Allergies Allergy Mild NONE Verified 02/10/23 10:00 Home Medications Medication Instructions Recorded Confirmed Last Taken Type aspirin 81 mg tablet,delayed 81 mg PO DAILY 12/21/19 02/10/23 Unknown History release (Aspir-) atorvastatin 80 mg tablet 80 mg PO BEDTIME 12/21/19 02/10/23 Unknown History citalopram 20 mg tablet 20 mg PO DAILY 12/21/19 02/10/23 Unknown History metformin 500 mg tablet 500 mg PO BID 12/21/19 02/10/23 Unknown History metoprolol tartrate 25 mg tablet 12.5 mg PO BID 12/21/19 02/10/23 12/27/19 08:30 History Exam Height,Weight and Vital Signs: Height 5 ft 8 in Weight 97.522 kg Vital Signs Temp Pulse Resp BP Pulse Ox O2 Del Method 02/10/23 10:06 97.8 F 61 16 157/95 H 96 Room Air Pertinent Lab Results Pertinent Lab Results: Lab Results 02/10/23 Range/Units 10:10 POC Glucose 140 H (60-115) mg/dL Airway Mallampati Class: III TM Dist: >3cm Neck ROM: Full Loose/Missing/Broken Teeth: No (Denies broken, loose, missing teeth) Heart: RRR Lungs: CTAB Assessment and Plan Assessment Anesthesia Assessment: Anesthesia Plan Discussed Final Anesthetic Review Family History of Problems with Anesthesia: No History of Problems with Anesthesia: No NPO: Yes ASA Class: III Final Preanesthetic Review: No Changes in Pt Med Stat, Meds/Allgs Chart Reviewed, Consent Obtained/Reviewed and Anes Risks/Benef Reviewed Patient Risk: Intermediate Procedure Risk: Low Assessment/Block/Sedation in SS: Assess/Block/Sedation-SS Anesthetic Plan Anesthetic Plan: MAC: Disposition: Standard PACU
[2023-02-10 10:06] VITALS: BP 157/95; PULSE 61; RESP 16; TEMP 36.6; O2SAT 96
[2023-02-10 10:14] LABS: Glucose, Whole Blood 140 mg/dL (60-115)
[2023-02-10 10:15] VITALS: BMI 33.8
[2023-02-10] MEDS: Tetracaine HCl/PF 0.5% Oph Sol 4 ML DROPS 1 DROP EYE-LEFT (10:29)
[2023-02-10] MEDS: Cyclopentolate 1 % Ophth Sol 2 ML DRPBTL 1 DROP EYE-LEFT ×3 (10:30→10:46)
[2023-02-10] MEDS: Tropicamide 1 % Ophth Sol 3 ML BTL 1 DROP EYE-LEFT ×3 (10:32→10:48)
[2023-02-10] MEDS: Lactated Ringers 500 ML 50 ML IV (10:33)
[2023-02-10] MEDS: Ketorolac Tromethamine 0.5% Op 5 ML DROPS 1 DROP EYE-LEFT ×3 (10:34→10:50)
[2023-02-10] MEDS: Phenylephrine HCL 2.5% Oph SoL 2 ML BOTTLE 1 DROP EYE-LEFT ×3 (10:36→10:52)
--- NOTE | 2023-02-10 11:14 | HO.PNOPHT ---
Ophthalmology Procedure Procedure Date of Service: 02/10/23 Ophthalmology Viscoelastic: Healon Duet Dual Pack Pro Ophthalmology Lenses: TECNIS [id number] (18.5) Procedure Notes: PREOPERATIVE DIAGNOSIS: Decreased visual acuity left eye secondary to cataract POSTOPERATIVE DIAGNOSIS: Same PROCEDURE: Left cataract extraction with intraocular lens insertion SURGEON: Russ Paz M.D. ANESTHESIA: Topical/MAC ESTIMATED BLOOD LOSS: None COMPLICATIONS: None After obtaining informed consent, the patient was brought to the operation room suite and placed in the supine position. After adequate sedation per anesthesia, topical drops of Tetracaine were given to the left eye. The eye was then prepped and draped in the usual sterile fashion. The operating room microscope was then positioned over the operative eye and a lid speculum placed. A paracentesis was created. Viscoelastic was then instilled into the anterior chamber. A three plane incision was then created temporally, utilizing a 2.85 mm keratome. Capsulotomy forceps were then utilized to create a circular tear capsulotomy. Hydrodissection and hydrodelineation were carried out until adequate mobilization of the nucleus occurred. Phacoemulsification was then utilized to remove the dense central nucleus followed by removal of the cortical material utilizing the automated aspiration irrigation unit. Viscoat elastic was instilled into the posterior capsular bag followed by placement of a posterior chamber intraocular lens without difficulty. The residual Viscoat elastic was then removed utilizing the automated IA machine. The wound was check and found to be watertight. The patient tolerated the procedure well and the lid speculum was removed. Intracameral injection of Vigamox 0.1 mL followed by a subtenon injection of Kenalog-40 0.2 mL were administered. The patient will be seen in the a.m.
[2023-02-10 11:40] VITALS: BP 144/81; PULSE 56; RESP 16; TEMP 36.2; O2SAT 95
== END 2023-02-10 11:46 | disposition home or self-care (01) ==
PROVIDERS: PCP Internal Medicine; Visit Provider Ophthalmology
PROC: (CPT 66985; principal; 2023-02-10 11:20)
DX: H25.12 Age-related nuclear cataract, left eye (principal); H52.4 Presbyopia; H18.413 Arcus senilis, bilateral; H43.393 Other vitreous opacities, bilateral; I10 Essential (primary) hypertension; I25.10 Atherosclerotic heart disease of native coronary artery without angina pectoris; Z95.5 Presence of coronary angioplasty implant and graft; I25.2 Old myocardial infarction; E78.00 Pure hypercholesterolemia, unspecified; E11.9 Type 2 diabetes mellitus without complications; Z96.653 Presence of artificial knee joint, bilateral; Z79.84 Long term (current) use of oral hypoglycemic drugs; Z79.82 Long term (current) use of aspirin; Z79.899 Other long term (current) drug therapy
CPT/HCPCS: 66984; 82947; J2250; J3010; J3301; V2632

== ENCOUNTER 2023-02-24 08:54 | Day surgery (SDC) | payer MEDICARE, OTHER, SELFPAY ==
[2023-02-04 13:41] VITALS: BMI 32.7
--- NOTE | 2023-02-21 07:52 | MHC.SHP ---
Pre-Procedural Eval Section A Date of Service: 02/21/23 The patient is an INPATIENT: No Changes since office visit: No Cold of Flu in the past 2 weeks, No New Medical Problems, No Changes in Medication and No Patient answered all questions The History & Physical has been completed within 30 days and I have reviewed it.: Yes Section B Chief Complaint: Age-related nuclear cataract, left eye Allergies: Allergies Allergy/AdvReac Type Severity Reaction Status Date / Time No Known Allergies Allergy Mild NONE Verified 02/10/23 10:00 Plan Diagnosis/Plan: Unchanged I have reviewed the history and physical and performed a pertinent physical examination on my patient. No changes have occurred unless specified. Time Spent With Patient Time: Total time managing care of this patient today ____ minutes.
--- NOTE | 2023-02-21 09:59 | HO.ANESPROP2 ---
Documented by User: Misty Rosario NP 02/21/23 10:01 HPI - Anesthesia Eval Consult details Narrative: 72yo M for Right Cataract Extraction IOL Insertion Medically cleared Left eye 02/10/23: Fent 50, Midaz 1 PMFSH Past Medical History Medical History Vertigo COVID-19 Arthritis Psoriasis SLY (obstructive sleep apnea) Diabetes Anxiety History of prostate cancer On beta huy at home Elevated cholesterol CAD (coronary artery disease) HTN (hypertension) Myocardial infarction Family History Family history of problems with anesthesia: No Surgical History Surgical History H/O wisdom tooth extraction History of coronary artery stent placement History of total bilateral knee replacement Hx of colonoscopy History of surgical removal of pilonidal cyst Hx of prostatectomy History of Problems with Anesthesia: No Social History Social History Are you a primary healthcare liaison to a significant other at home: No Do you presently have visiting nurse or other home services: No Alcohol intake: never Patient Tobacco Use Status: Never used Tobacco Use of substances other than those prescribed or required for medical reasons: No Have you been hit, kicked, punched, or otherwise hurt by someone within the past year? If so, by whom?: No Advance Directives: No Advance Directives Information Provided: Yes Advance Directives on File: No Recently lost weight without trying: No Eating poorly because of decreased appetite: No Nutrition Risks: No Nutritional Risk Poor oral hygiene: No Meds Allergies Allergy/AdvReac Type Severity Reaction Status Date / Time No Known Allergies Allergy Mild NONE Verified 02/10/23 10:00 Home Medications Medication Instructions Recorded Confirmed Last Taken Type aspirin 81 mg tablet,delayed 81 mg PO DAILY 12/21/19 02/10/23 Unknown History release (Aspir-) atorvastatin 80 mg tablet 80 mg PO BEDTIME 12/21/19 02/10/23 Unknown History citalopram 20 mg tablet 20 mg PO DAILY 12/21/19 02/10/23 Unknown History metformin 500 mg tablet 500 mg PO BID 12/21/19 02/10/23 Unknown History metoprolol tartrate 25 mg tablet 12.5 mg PO BID 12/21/19 02/10/23 12/27/19 08:30 History Exam Height,Weight and Vital Signs: Height 5 ft 8 in Weight 97.522 kg Assessment and Plan Assessment Anesthesia Assessment: Chart Reviewed Final Anesthetic Review Family History of Problems with Anesthesia: No History of Problems with Anesthesia: No Documented by User: Mirta Caceres MD 02/24/23 10:57 [facility] Past Medical History Medical History Vertigo COVID-19 Arthritis Psoriasis SLY (obstructive sleep apnea) Diabetes Anxiety History of prostate cancer On beta huy at home Elevated cholesterol CAD (coronary artery disease) HTN (hypertension) Myocardial infarction Surgical History Surgical History H/O wisdom tooth extraction History of coronary artery stent placement History of total bilateral knee replacement Hx of colonoscopy History of surgical removal of pilonidal cyst Hx of prostatectomy Social History Social History Are you a primary healthcare liaison to a significant other at home: No Do you presently have visiting nurse or other home services: No Alcohol intake: never Patient Tobacco Use Status: Never used Tobacco Use of substances other than those prescribed or required for medical reasons: No Have you been hit, kicked, punched, or otherwise hurt by someone within the past year? If so, by whom?: No Advance Directives: No Advance Directives Information Provided: Yes Advance Directives on File: No Recently lost weight without trying: No Eating poorly because of decreased appetite: No Nutrition Risks: No Nutritional Risk Poor oral hygiene: No Meds Allergies Allergy/AdvReac Type Severity Reaction Status Date / Time No Known Allergies Allergy Mild NONE Verified 02/10/23 10:00 Home Medications Medication Instructions Recorded Confirmed Last Taken Type aspirin 81 mg tablet,delayed 81 mg PO DAILY 12/21/19 02/10/23 Unknown History release (Aspir-) atorvastatin 80 mg tablet 80 mg PO BEDTIME 12/21/19 02/10/23 Unknown History citalopram 20 mg tablet 20 mg PO DAILY 12/21/19 02/10/23 Unknown History metformin 500 mg tablet 500 mg PO BID 12/21/19 02/10/23 Unknown History metoprolol tartrate 25 mg tablet 12.5 mg PO BID 12/21/19 02/10/23 12/27/19 08:30 History Exam Height,Weight and Vital Signs: Height 5 ft 8 in Weight 97.522 kg Vital Signs Temp Pulse Resp BP Pulse Ox O2 Del Method 02/24/23 10:06 97.4 F 62 16 141/87 H 95 Room Air Airway Mallampati Class: III TM Dist: >3cm Neck ROM: Full Loose/Missing/Broken Teeth: No (Denies broken, loose, missing teeth) Heart: RRR Lungs: CTAB Assessment and Plan Assessment Anesthesia Assessment: Anesthesia Plan Discussed Final Anesthetic Review NPO: Yes ASA Class: III Final Preanesthetic Review: No Changes in Pt Med Stat, Meds/Allgs Chart Reviewed, Consent Obtained/Reviewed and Anes Risks/Benef Reviewed Patient Risk: Intermediate Procedure Risk: Low Assessment/Block/Sedation in SS: Assess/Block/Sedation-SS Anesthetic Plan Anesthetic Plan: MAC: Disposition: Standard PACU
--- NOTE | 2023-02-21 15:59 | MHC.SHP ---
Pre-Procedural Eval Section A Date of Service: 02/24/23 Section B Chief Complaint: Age-related nuclear cataract, left eye Allergies: Allergies Allergy/AdvReac Type Severity Reaction Status Date / Time No Known Allergies Allergy Mild NONE Verified 02/10/23 10:00 Plan I have reviewed the history and physical and performed a pertinent physical examination on my patient. No changes have occurred unless specified. Time Spent With Patient Time: Total time managing care of this patient today ____ minutes.
[2023-02-24 10:06] VITALS: BP 141/87; PULSE 62; RESP 16; TEMP 36.3; O2SAT 95
[2023-02-24] MEDS: Lactated Ringers 500 ML 50 ML IV (10:13)
[2023-02-24] MEDS: Tetracaine HCl/PF 0.5% Oph Sol 4 ML DROPS 1 DROP EYE-RIGHT (10:13)
[2023-02-24] MEDS: Cyclopentolate 1 % Ophth Sol 2 ML DRPBTL 1 DROP EYE-RIGHT ×3 (10:14→10:19)
[2023-02-24] MEDS: Tropicamide 1 % Ophth Sol 3 ML BTL 1 DROP EYE-RIGHT ×3 (10:15→10:19)
[2023-02-24] MEDS: Ketorolac Tromethamine 0.5% Op 5 ML DROPS 1 DROP EYE-RIGHT ×3 (10:15→10:19)
[2023-02-24] MEDS: Phenylephrine HCL 2.5% Oph SoL 2 ML BOTTLE 1 DROP EYE-RIGHT ×3 (10:16→10:21)
[2023-02-24 10:32] LABS: Glucose, Whole Blood 112 mg/dL (60-115)
[2023-02-24 11:22] VITALS: BP 149/81; PULSE 58; RESP 12; TEMP 36.4; O2SAT 98
--- NOTE | 2023-02-24 11:23 | HO.PNOPHT ---
Ophthalmology Procedure Procedure Date of Service: 02/24/23 Ophthalmology Viscoelastic: Healdiane Davist Dual Pack Pro Ophthalmology Lenses: TECVALERIY [id number] (18) Procedure Notes: PREOPERATIVE DIAGNOSIS: Decreased visual acuity right eye secondary to cataract POSTOPERATIVE DIAGNOSIS: Same PROCEDURE: Right cataract extraction with intraocular lens insertion SURGEON: Russ Paz M.D. ANESTHESIA: Topical/MAC ESTIMATED BLOOD LOSS: None COMPLICATIONS: None After obtaining informed consent, the patient was brought to the operating room suite and placed in the supine position. After adequate sedation per anesthesia, topical drops of Tetracaine were given to the right eye. The eye was then prepped and draped in the usual sterile fashion. The operating room microscope was then positioned over the operative eye and a lid speculum placed. A paracentesis was created. Viscoelastic was then instilled into the anterior chamber. A three plane incision was then created temporally, utilizing a 2.85 mm keratome. Capsulotomy forceps were then utilized to create a circular tear capsulotomy. Hydrodissection and hydrodelineation were carried out until adequate mobilization of the nucleus occurred. Phacoemulsification was then utilized to remove the dense central nucleus followed by removal of the cortical material utilizing the automated aspiration irrigation unit. Viscoelastic was instilled into the posterior capsular bag followed by placement of a posterior chamber intraocular lens without difficulty. The residual Viscoelastic was then removed utilizing the automated IA machine. The wound was checked and found to be watertight. The patient tolerated the procedure well and the lid speculum was removed. Intracameral injection of Vigamox 0.1 mL followed by a subtenon injection of Kenalog-40 0.2 mL were administered. The patient will be seen in the a.m.
== END 2023-02-24 11:39 | disposition home or self-care (01) ==
PROVIDERS: PCP Internal Medicine; Visit Provider Ophthalmology
PROC: (CPT 66985; principal; 2023-02-24 11:20)
DX: H25.11 Age-related nuclear cataract, right eye (principal); H52.4 Presbyopia; H43.393 Other vitreous opacities, bilateral; H18.413 Arcus senilis, bilateral; I10 Essential (primary) hypertension; I25.2 Old myocardial infarction; Z95.5 Presence of coronary angioplasty implant and graft; E78.00 Pure hypercholesterolemia, unspecified; E11.9 Type 2 diabetes mellitus without complications; Z79.84 Long term (current) use of oral hypoglycemic drugs; Z79.82 Long term (current) use of aspirin; Z79.899 Other long term (current) drug therapy
CPT/HCPCS: 66984; 82947; J2250; J3010; J3301; V2632

== ENCOUNTER 2023-02-27 10:59 | Outpatient (REF) | payer MEDICARE, OTHER, SELFPAY ==
[2023-02-27 11:03] LABS: MANUAL DIFF FLAG NO
[2023-02-27 11:09] LABS: Appearance Urine Clear; Color Urine Yellow; Glucose Urine UA Negative (Negative); Leukocyte Esterase Urine Negative (Negative); Nitrite Urine Negative (Negative); Urine Blood Trace (Negative); Urine Ketones Negative (Negative); Urine Protein Negative (Neg-Trace)
[2023-02-27 11:10] LABS: UMIC TRIGGER UACC YES
[2023-02-27 11:19] LABS: Bacteria Urine None Seen (None Seen); Basophils Percent Auto 0.3 % (0-2); Eosinophils Absolute Auto 0.2 X10*3/uL (0.0-0.4); Eosinophils Percent Auto 4.1 % (0-4); Hematocrit 42.7 % (42.0-52.0); Hemoglobin 14.2 g/dl (14.0-18.0); Hyaline Casts Urine 0-2 /LPF (0-2); Imm Gran Abs Auto 0.03 X10*3/uL (0.00-0.03); Imm Gran Pct Auto 0.5 % (0.0-0.4); Lymphocytes Percent Auto 33.4 % (20-40); Mean Corpuscular HGB Conc 33.3 g/dl (31.0-36.0); Mean Corpuscular Hemoglobin 29.3 pg (27.0-33.0); Mean Corpuscular Volume 88.2 fL (80.0-98.0); Mean Platelet Volume 11.4 fL (9.4-12.4); Monocytes Absolute Auto 0.6 X10*3/uL (0.1-1.2); Monocytes Percent Auto 10.8 % (2-11); Neutrophils Percent Auto 50.9 % (45-73); Platelet Count 188 X10*3/uL (160-400); RBC Urine 0-2 /HPF (0-2); Red Blood Count 4.84 X10*6/uL (4.60-5.80); Red Cell Distribution Width 12.2 % (11.0-16.0); Squamous Epithelial Cell Urine 0-2 /HPF (0-2); WBC Urine 0-5 /HPF (0-5); White Blood Count 5.8 X10*3/uL (4.8-10.8)
[2023-02-27 11:23] LABS: Alanine Aminotransferase 17 U/L (0-40); Albumin Level 4.3 g/dL (3.5-5.0); Alkaline Phosphatase 98 U/L (39-117); Anion Gap 11 (12-20); Aspartate Amino Transferase 20 U/L (5-37); Bilirubin Total 0.6 mg/dL (0.0-1.0); Blood Urea Nitrogen 23 mg/dL (9-16); Calcium 9.3 mg/dL (8.4-10.2); Carbon Dioxide 28 mmol/L (22-29); Chloride 103 mmol/L (96-108); Cholesterol 150 mg/dL (<200); Estimated Glomerular Filt Rate > 60; Glucose Fasting 127 mg/dL (60-99); HDL Cholesterol 37 mg/dL (>40); LDL Cholesterol Calculated 79 mg/dL (<100); Potassium 4.1 mmol/L (3.3-5.1); Sodium 138 mmol/L (135-145); Total Protein 7.2 g/dL (6.5-8.0); Triglycerides 174 mg/dL (<150)
[2023-02-27 11:33] LABS: Estimated Average Glucose 143 mg/dL; Hemoglobin A1c % 6.6 % (<6.0)
[2023-02-27 11:38] LABS: PSA,Total (Free>4and<10) < 0.10 ng/mL (0.00-4.00)
[2023-02-27 12:21] LABS: Creatinine Urine 101.65 mg/dL; Microalbum/Creatinine Ratio Ur 17.7 ug/mg cr (<30)
== END 2023-02-27 11:00 | disposition home or self-care (01) ==
LOC: HO.LNP 10:59
PROVIDERS: Visit Provider Internal Medicine
DX: Z12.5 Encounter for screening for malignant neoplasm of prostate (principal); E11.9 Type 2 diabetes mellitus without complications
CPT/HCPCS: 80053; 80061; 81001; 82043; 82570; 83036; 84153; 85025

== ENCOUNTER 2023-03-04 16:44 | Outpatient (REF) | payer MEDICARE, OTHER, SELFPAY ==
[2023-03-04 17:10] LABS: Appearance Urine Clear; Color Urine Yellow; Glucose Urine UA 500 mg/dL (Negative); Leukocyte Esterase Urine Negative (Negative); Nitrite Urine Negative (Negative); Specific Gravity - Urine 1.025 (1.005-1.025); UMIC TRIGGER UACC YES; Urine Blood Trace (Negative); Urine Ketones Negative (Negative); Urine Protein Negative (Neg-Trace)
[2023-03-04 17:30] LABS: Bacteria Urine None Seen (None Seen); Hyaline Casts Urine 0-2 /LPF (0-2); RBC Urine 0-2 /HPF (0-2); Squamous Epithelial Cell Urine 0-2 /HPF (0-2); WBC Urine 0-5 /HPF (0-5)
== END 2023-03-04 16:45 | disposition home or self-care (01) ==
LOC: HO.LNP 16:44
PROVIDERS: Visit Provider Internal Medicine
DX: R31.9 Hematuria, unspecified (principal)
CPT/HCPCS: 81001

== ENCOUNTER 2023-05-22 11:57 | Outpatient (REF) | payer MEDICARE, OTHER, SELFPAY ==
[2023-05-22 13:12] LABS: Blood Urea Nitrogen 16 mg/dL (9-16); Estimated Glomerular Filt Rate > 60
== END 2023-05-22 11:58 | disposition home or self-care (01) ==
LOC: HO.LNP 11:57
PROVIDERS: Visit Provider Internal Medicine
DX: R79.9 Abnormal finding of blood chemistry, unspecified (principal)
CPT/HCPCS: 82565; 84520

== ENCOUNTER 2023-06-06 11:58 | Day surgery (SDC) | payer MEDICARE, OTHER, SELFPAY ==
--- NOTE | 2023-06-06 12:53 | HO.ANESPROP2 ---
[facility] Past Medical History Medical History Vertigo COVID-19 Arthritis Psoriasis SLY (obstructive sleep apnea) Diabetes Anxiety History of prostate cancer On beta huy at home Elevated cholesterol CAD (coronary artery disease) HTN (hypertension) Myocardial infarction Family History Family history of problems with anesthesia: No Surgical History Surgical History H/O wisdom tooth extraction History of coronary artery stent placement History of total bilateral knee replacement Hx of colonoscopy History of surgical removal of pilonidal cyst Hx of prostatectomy History of Problems with Anesthesia: No Social History Social History Are you a primary care management assistant to a significant other at home: No Do you presently have visiting nurse or other home services: No Alcohol intake: never Patient Tobacco Use Status: Never used Tobacco Advance Directives: No Advance Directives Information Provided: Yes Meds Allergies Allergy/AdvReac Type Severity Reaction Status Date / Time No Known Allergies Allergy Mild NONE Verified 02/10/23 10:00 Active Medications: Current Medications Sodium Biphosphate/Sodium Phosphate (Sodium Phosphate,[place]-Dibasic 133 Ml Enema) 133 ml DE ONCE PRN PRN Reason: Poor Colonoscopy Prep Results Home Medications Medication Instructions Recorded Confirmed Last Taken Type aspirin 81 mg tablet,delayed 81 mg PO DAILY 12/21/19 02/10/23 Unknown History release (Aspir-) atorvastatin 80 mg tablet 80 mg PO BEDTIME 12/21/19 02/10/23 Unknown History citalopram 20 mg tablet 20 mg PO DAILY 12/21/19 02/10/23 Unknown History metformin 500 mg tablet 500 mg PO BID 12/21/19 02/10/23 Unknown History metoprolol tartrate 25 mg tablet 12.5 mg PO BID 12/21/19 02/10/23 12/27/19 08:30 History Exam Airway Mallampati Class: III TM Dist: <=3cm Neck ROM: Full Loose/Missing/Broken Teeth: No Heart: rrr Lungs: cta b/l Assessment and Plan Final Anesthetic Review Family History of Problems with Anesthesia: No History of Problems with Anesthesia: No NPO: Yes ASA Class: III Final Preanesthetic Review: No Changes in Pt Med Stat, Meds/Allgs Chart Reviewed, Consent Obtained/Reviewed and Anes Risks/Benef Reviewed Patient Risk: Intermediate Procedure Risk: Intermediate Anesthetic Plan Anesthetic Plan: MAC: Disposition: Standard PACU
[2023-06-06 12:58] VITALS: BMI 33.1
[2023-06-06 13:16] VITALS: BP 149/95; PULSE 70; RESP 16; TEMP 36.7; O2SAT 98
[2023-06-06 13:27] LABS: Glucose, Whole Blood 105 mg/dL (60-115)
[2023-06-06] MEDS: Lactated Ringers 1,000 ML 80 ML IVCONT (13:39)
[2023-06-06 14:41] VITALS: BP 122/69; PULSE 63; RESP 16; TEMP 36.1; O2SAT 96
--- NOTE | 2023-06-06 14:41 | P.BOP_ITS ---
Brief Operative Note Date of Service: 06/06/23 Pre-op diagnosis: Rectal bleeding Post-op diagnosis: other (Colon polyp) Procedure: Colonoscopy to the cecum with hot snare polypectomy x 1 and placement of 4 Resolution clips Surgeon: Vahe Schreiber MD Anesthesia: MAC Was an [employer] used for this Procedure?: No Estimated blood loss (mL): 2.0 Pathology: other (A. Ascending colon polyp) Condition: stable Disposition: PACU
[2023-06-06 14:56] VITALS: BP 128/81; PULSE 70; RESP 18; TEMP 36.4; O2SAT 97
--- NOTE | 2023-06-06 16:10 | OP_ITS ---
DATE OF SERVICE: 06/06/2023 SURGEON: Vahe Schreiber MD INDICATIONS: The patient presents for evaluation of intermittent hematochezia and personal history of tubular adenoma of the colon. Full consent has been obtained from him for this, including risks of bleeding and perforation. PREOPERATIVE DIAGNOSIS: POSTOPERATIVE DIAGNOSIS: PROCEDURE PERFORMED: Colonoscopy to the cecum with hot snare polypectomy and placement of 4 Resolution clips. ESTIMATED BLOOD LOSS: COMPLICATIONS: ANESTHESIA: Monitored anesthesia care. ASSISTANTS: SPECIMENS: PREOPERATIVE DIAGNOSES: Rectal bleeding and personal history of tubular adenoma of the colon. POSTOPERATIVE DIAGNOSES: Rectal bleeding, personal history of tubular adenoma of the colon, colon polyp, diverticulosis, and internal hemorrhoids. DESCRIPTION OF PROCEDURE: The patient was placed in the left lateral decubitus position. The digital rectal exam revealed no abnormalities. The Olympus video pediatric colonoscope was entered into the rectum and advanced easily to the cecum. Once in the cecum, I did identify normal-appearing cecal pouch with appendiceal orifice and a normal-appearing ileocecal valve. There was transillumination of light deep in the right lower quadrant. The entire cecum and ileocecal valve appeared normal. The scope was slowly withdrawn, assessing all mucosal surfaces carefully. Preparation was excellent. In the proximal ascending colon was a relatively flat and lobulated 12 to 15 mm polyp which was removed in piecemeal fashion with a hot snare polypectomy and recovered by suction. The polypectomy site appeared clean, without any sign of residual polyp nor bleeding. A total of 4 Resolution clips were applied to the polypectomy site with good deployment and good hemostasis. I did not visualize any other polyps, colitis, or angiodysplasia. There was a moderate amount of sigmoid diverticulosis. In the rectum, the scope was retroflexed visualizing small internal hemorrhoids, but no other pathology. The rectal mucosa appeared normal. The scope was straightened and withdrawn from the patient. He tolerated the procedure well and was returned to the recovery area in stable condition. IMPRESSION: 1. Colon polyp. 2. Diverticulosis. 3. Internal hemorrhoids. PLAN: Given his previous history and today's findings, I would recommend a repeat colonoscopy in 3 years for further surveillance. He will otherwise see me on a p.r.n. basis. He was advised to resume his aspirin in 48 hours. He was advised not to use any NSAIDs for 1 week. MD CHAD Gonzalez/DANIELE / [id number] MALGORZ[place]
== END 2023-06-06 15:16 | disposition home or self-care (01) ==
PROVIDERS: PCP Internal Medicine; Visit Provider Internal Medicine
PROC: 0DJD8ZZ Inspection of Lower Intestinal Tract, Via Natural or Artificial Opening Endoscopic (ICD-10-PCS; CPT 45378; principal; 2023-06-06 13:50)
DX: K62.5 Hemorrhage of anus and rectum (principal); Z86.010 Personal history of colon polyps; D12.2 Benign neoplasm of ascending colon; K57.30 Diverticulosis of large intestine without perforation or abscess without bleeding; K64.8 Other hemorrhoids; I10 Essential (primary) hypertension; E78.00 Pure hypercholesterolemia, unspecified; I25.2 Old myocardial infarction; Z95.5 Presence of coronary angioplasty implant and graft; E11.9 Type 2 diabetes mellitus without complications; G47.33 Obstructive sleep apnea (adult) (pediatric); F41.9 Anxiety disorder, unspecified; R42 Dizziness and giddiness; Z85.46 Personal history of malignant neoplasm of prostate; Z79.82 Long term (current) use of aspirin; Z79.84 Long term (current) use of oral hypoglycemic drugs; Z79.899 Other long term (current) drug therapy
CPT/HCPCS: 45385; 82947; 88305; J2704

== ENCOUNTER 2023-08-29 12:27 | Outpatient (REF) | payer MEDICARE, OTHER, SELFPAY ==
[2023-08-29 13:38] LABS: Estimated Average Glucose 148 mg/dL; Hemoglobin A1c % 6.8 % (<6.0)
[2023-08-29 13:44] LABS: Alanine Aminotransferase 20 U/L (0-40); Albumin Level 4.4 g/dL (3.5-5.0); Alkaline Phosphatase 89 U/L (39-117); Aspartate Amino Transferase 24 U/L (5-37); Bilirubin Direct 0.3 mg/dL (0.0-0.5); Bilirubin Total 0.9 mg/dL (0.0-1.0); Cholesterol 141 mg/dL (<200); Glucose Fasting 131 mg/dL (60-99); HDL Cholesterol 33 mg/dL (>40); LDL Cholesterol Calculated 70 mg/dL (<100); Total Protein 7.1 g/dL (6.5-8.0); Triglycerides 192 mg/dL (<150)
== END 2023-08-29 12:28 | disposition home or self-care (01) ==
LOC: HO.LNP 12:27
PROVIDERS: Visit Provider Internal Medicine
DX: E11.9 Type 2 diabetes mellitus without complications (principal); E78.6 Lipoprotein deficiency
CPT/HCPCS: 80061; 80076; 82947; 83036

== ENCOUNTER 2024-01-02 13:01 | Emergency (ER) | payer MEDICARE, OTHER, SELFPAY ==
--- NOTE | ~2024-01-02 | XR_ITS ---
EXAMINATION: XR KNEE, RIGHT CLINICAL INFORMATION: Fall. Pain. History of replacement. COMPARISON: Right knee films dated 10/10/2015. TECHNIQUE: Four views of the right knee performed on 5 images. FINDINGS: The patient is status post total right knee arthroplasty with the prosthetic components well seated within the [place] george bone. No evidence of hardware or [place] george bone fracture is seen. There is some bone lucency seen in the lateral femoral condyle and the lateral tibial plateau, both deep to the prosthesis, raising the suspicion of either loosening or subtle foreign body reaction. The 4 previously seen well-corticated loose bodies within the posterior aspect of the knee are again noted, unchanged. XR/XR knee RT 4V IMPRESSION: 1. No evidence of hardware or [place] george bone fracture. 2. There is subtle bone lucency in the lateral femoral condyle and lateral tibial plateau, both deep to the prosthesis, raising the suspicion of either loosening or subtle foreign body reaction. 3. Multiple loose bodies are again seen within the posterior aspect of the knee, unchanged. Electronically signed by: Kenia Mendoza MD 01/02/2024 05:06 PM EDT
--- NOTE | ~2024-01-02 | CT_ITS ---
EXAMINATION: CT HEAD WITHOUT CONTRAST CT CERVICAL SPINE WITHOUT CONTRAST CLINICAL INFORMATION: Fall. Head injury. Pain on the left side. COMPARISON: CTA head and neck from 07/27/2020. Brain MRI from 07/27/2020. TECHNIQUE: Contiguous axial imaging was performed from the skull base to vertex without intravenous administration of contrast. Contiguous axial imaging was performed from the upper chest through the skull base without intravenous administration of contrast. Coronal and sagittal reformats were obtained at the acquisition workstation. This CT examination was performed using dose optimization techniques as appropriate, variously including the following: *Automated exposure control. *Adjustment of mA and/or kV according to patient size (this includes techniques or standardized protocols for targeted exams where dose is matched to indication/reason for exam; i.e. extremities or head). *Use of iterative reconstruction technique. DLP: 1364 mGy-cm FINDINGS: Head: There is no evidence of acute intracranial hemorrhage or edematous territorial infarction. Ortiz-white matter differentiation is preserved. A few foci of hypoattenuation in the periventricular and deep white matter are consistent with mild microangiopathy. Proportional prominence of the ventricles and sulcal spaces without evidence of obstructive hydrocephalus. No abnormal mass effect or midline shift. No extra-axial fluid collections. Calcific atherosclerotic disease of the intracranial internal carotid and vertebral arteries. No hyperdense vessel sign. Soft tissue laceration and subgaleal hematoma along the left parietal bone, measuring up to 0.3 cm in depth. No associated acute osseous abnormalities. Prior malleable plate and screw fixation of the left inferior orbital rim and zygomaticofrontal suture. Mild mucosal thickening of the paranasal sinuses. The mastoid air cells and middle ear cavities are clear. Cervical Spine: The atlantooccipital and atlantoaxial articulations remain well aligned. Advanced degenerative arthropathy of the atlantodental articulation. Reversal the normal cervical lordosis centered on C5-C6. Mild degenerative anterolisthesis of C4 on C5. Otherwise, there is anatomic alignment of the vertebral bodies and posterior elements. No evidence of acute fracture or subluxation. The vertebral body heights are maintained . Advanced degenerative disc disease from C5-T1. Facet and uncovertebral joint arthropathy leads to osseous encroachment on the neural foramina from C3-T1. There is no prevertebral soft tissue swelling. The thyroid gland and remaining cervical soft tissues are within normal limits. The lung apices demonstrate no abnormalities. CT/CT cervical spine wo IV con IMPRESSION: 1. No evidence of acute intracranial hemorrhage or edematous territorial infarction. Mild underlying microangiopathy and generalized cerebral volume loss. 2. No evidence of acute fracture or traumatic subluxation of the cervical spine. Moderate multilevel degenerative spondyloarthropathy of the cervical spine. 3. Left parietal scalp laceration and small subgaleal hematoma. No associated osseous abnormalities. Electronically signed by: Jerrod Davila DO 01/02/2024 03:21 PM EDT
[2024-01-02 13:03] VITALS: BP 118/82; PULSE 65; RESP 16; TEMP 36.8; O2SAT 98; BMI 33.2
--- NOTE | 2024-01-02 13:03 | ED_ITS ---
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 He struck his head as he fell and sustained a laceration to his left scalp. He does not think he had loss of consciousness. He says that the fall was not the result of a fainting episode. He believes he simply lost his balance and fell. In addition to hitting his head he also injured his right knee. He apparently received some 1st aid at the time and was encouraged to go to an urgent care center. The injury occurred in [place]. Drove to his hometown of [place] went to an urgent care center where he was told he needed to go to an emergency room. He then had a friend drive him here. Other than the head injury and the right knee injury he does not feel he has vasquez stained any other significant injuries. He is on not on anticoagulation. The patient is also concerned that he might have been in contact recently was somebody with COVID. At the moment the patient does not have any respiratory symptoms but he is very concerned that he has been exposed to COVID and is requesting COVID testing. Related Data Home Medications ?Medication ?Instructions ?Recorded ?Confirmed aspirin 81 mg tablet,delayed 81 mg PO DAILY 12/21/19 06/06/23 release (Aspir-) atorvastatin 80 mg tablet 80 mg PO BEDTIME 12/21/19 06/06/23 citalopram 20 mg tablet 20 mg PO DAILY 12/21/19 06/06/23 metformin 500 mg tablet 500 mg PO BID 12/21/19 06/06/23 metoprolol tartrate 25 mg tablet 12.5 mg PO BID 12/21/19 06/06/23 Previous Rx's ?Medication ?Instructions ?Recorded lorazepam 0.5 mg tablet 0.5 mg PO BEDTIME PRN sleep #20 07/27/20 tabs Allergies Allergy/AdvReac Type Severity Reaction Status Date / Time No Known Allergies Allergy Mild NONE Verified 01/02/24 13:10 Review of Systems Review of Systems: Yes all other systems are reviewed and are negative PMFSH Past Medical History Medical History Vertigo COVID-19 Arthritis Psoriasis SLY (obstructive sleep apnea) Diabetes Anxiety History of prostate cancer On beta huy at home Elevated cholesterol CAD (coronary artery disease) HTN (hypertension) Myocardial infarction Surgical History H/O wisdom tooth extraction History of coronary artery stent placement History of total bilateral knee replacement Hx of colonoscopy History of surgical removal of pilonidal cyst Hx of prostatectomy Social History Social History Are you a primary urgent care technician to a significant other at home: No Do you presently have visiting nurse or other home services: No Alcohol intake: never Patient Tobacco Use Status: Never used Tobacco Advance Directives: No Advance Directives Information Provided: No Do you have a plan to hurt others: No Plan Physical Exam Vital Signs: Vital Signs: Last Vital Signs Temp 97.3 F 01/02/24 17:26 Pulse 67 01/02/24 17:26 Resp 18 01/02/24 17:26 BP 128/66 01/02/24 17:26 Pulse Ox 98 01/02/24 17:26 O2 Del Method Room Air 01/02/24 17:26 BMI result Body Mass Index 33.2 Const: Other: The patient is awake, alert, pleasant, cooperative. He does not appear in acute distress. HEENT: Other: The patient has a 5 cm laceration on the left occipital parietal scalp. No raccoon eyes. No corona sign. Eyes: Other: Pupils are round equal, conjunctivae are clear, extraocular movements intact. Neck: Other: Mild posterior C-spine tenderness. Chest: Other: No chest wall tenderness Resp: Effort & Inspection: normal respiratory effort Auscultation: clear to auscultation bilaterally Cardio: Rate: regular rate Rhythm: regular rhythm Heart sounds: S1 normal heart sound present and S2 normal heart sound present GI: Other: Abdomen is soft and nontender Back/Spine/Pelvis: Other: No vertebral tenderness in the back Skin: Other: There is a 5 cm laceration to the left occipital parietal scalp. Neuro: Other: The patient is awake and alert with a normal mental status. GCS is 15. Cranial nerves are grossly intact. He moves his extremities normally. He walks with a limp because of pain in his right knee but does not seem to have any neurological deficits. Extrem: Other: The patient has some mild generalized tenderness about the right knee without significant swelling or effusion. He is able to put the knee through a decent range of motion of the knee seems reasonably stable. He walks with a limp however. The other extremities are unremarkable. Course Course Course Narrative: This is an RME performed by Gurdeep Mccord CNP: Additional HPI, ROS, PE not included below will be deferred to primary provider. Patient is a 73-year-old male who presents to the emergency department for evaluation. 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 He reports that the loading dock is approximately 5 ft up from the ground, fell from standing position subsequently striking his head onto the truck and then the ground. Takes daily low-dose aspirin. Endorses pain to the right knee, his history replacement a few years ago, family expressing concern that he is limping on this leg which is not baseline. exam: Left parietal occipital scalp with multiple solutions, no active bleeding. No focal neurological deficits. Tdap >5 years ago Plan: CT head/ cervical spine. requesting COVID-19 testing given recent exposure, asymptomatic Medications Administered Discontinued Medications Generic Name Dose Route Start Last Admin Trade Name Ginoq PRN Reason Stop Dose Admin Acetaminophen 975 mg 01/02/24 16:45 01/02/24 16:55 Acetaminophen 325 Mg Tablet PO 01/02/24 16:46 975 mg ONCE ONE Administration Bacitracin 1 appl 01/02/24 16:47 01/02/24 16:55 Bacitracin Oint 0.9 Gm Packet TOPICAL 01/02/24 16:48 1 appl ONCE ONE Administration Protocol Diphtheria/Tetanus/Acell Pertussis 0.5 ml 01/02/24 13:11 01/02/24 16:25 Diphth,Pertus(Acell),Tet Adult 0.5 Ml Syringe IM 01/02/24 13:12 0.5 ml .ONCE ONE Administration Ibuprofen 400 mg 01/02/24 16:45 01/02/24 16:55 Ibuprofen 400 Mg Tablet PO 01/02/24 16:46 400 mg ONCE ONE Administration Medical Decision Making Medical Decision Making [facility] Narrative: The patient is a 73-year-old male who presents for evaluation following a mechan ical fall. He had a head injury and sustained a scalp laceration. He also injured his right knee. He has an artificial right knee. He has been able to walk but has been walking with a limp. Head CT is negative. Cervical spine CT is negative. The patient had a plain film of his right knee. This shows no fracture. The official reading of the knee x-ray states IMPRESSION: 1. No evidence of hardware or venetie ira bone fracture. 2. There is subtle bone lucency in the lateral femoral condyle and lateral tibial plateau, both deep to the prosthesis, raising the suspicion of either loosening or subtle foreign body reaction. 3. Multiple loose bodies are again seen within the posterior aspect of the knee, unchanged. I explained to the patient that the radiologist describes a question of a possible loosening of his prosthesis. The patient says that he has had no symptoms related to the knee prior to the fall. He will be advised to contact his orthopedic surgeon at [facility] next week to discuss whether this finding is significant at all. The patient was offered crutches but declined. He says he has a cane at home. He will be getting a ride home. He was given a tetanus shot. His scalp laceration was closed with 5 seth. He should get these removed at his PCP's office in 10 days. He should contact his orthopedic surgery office next week to discuss the findings on his x-ray. He should rest the leg and ice the leg often. He should return if worse. Lab Data Labs: Lab Results 01/02/24 Range/Units 17:01 Influenza Type A (PCR) NEGATIVE (Negative) Influenza Type B (PCR) NEGATIVE (Negative) RSV RNA Qual (PCR) NEGATIVE (Negative) SARS-CoV-2 RNA (RT-PCR) NEGATIVE (Negative) Procedures Laceration Laceration 1: Site: scalp Side (If applicable): left Size (cm): 5 Description: linear Depth: simple, single layer Pre-repair: wound explored Skin layer closed with: other (Seth) Number of sutures: 5 Discharge Plan Discharge Clinical Impression: Fall, Head injury, Laceration of scalp, Strain of right knee Patient Disposition: Home, Self-Care Instructions: Staple Care (ED) Additional Instructions: You have 5 seth in the laceration of your scalp that should be removed in 10 days at your primary care doctor's office. You may shower today but please apply bacitracin or other topical antibiotic ointment to the wound before the shower and then again after the shower. Please use a cane or other assistive device to help with your right knee pain. I would recommend icing the knee for 15-20 minutes at a time every few hours for the next couple of days. Please contact your primary care doctor's office in the morning for an appointment in 10 days for staple removal. You may use ibuprofen and acetaminophen as needed for pain. The x-ray of your right knee shows no fracture. However the radiologist has made the following comment about your x-ray: 1. No evidence of hardware or venetie ira bone fracture. 2. There is subtle bone lucency in the lateral femoral condyle and lateral tibial plateau, both deep to the prosthesis, raising the suspicion of either loosening or subtle foreign body reaction. It is very possible that this equivocal finding means nothing at all. Nevertheless it would be good for you to call your orthopedic surgeon at [facility] next week to discuss whether this finding is significant or not. Return to the emergency room if significantly worse in any way. Prescriptions: No Action metformin 500 mg Tablet 500 mg PO BID atorvastatin 80 mg Tablet 80 mg PO BEDTIME aspirin [Aspir-81] 81 mg Tablet,Delayed Release (Dr/Ec) 81 mg PO DAILY citalopram 20 mg Tablet 20 mg PO DAILY metoprolol tartrate 25 mg Tablet 12.5 mg PO BID lorazepam 0.5 mg tablet 0.5 mg PO BEDTIME PRN (Reason: sleep) Qty: 20 0RF Referrals: [facility] [Provider Group] (right knee x-ray finding) Cordell Holden MD [Primary Care Provider] - (Scalp laceration suture removal, right knee strain) Interventions: ED Discharge Assessment Last Done: 01/02/24 17:26 Discharge Date/Time: 01/02/24 17:27 Print Language: Tongan
[2024-01-02 16:20] VITALS: BP 130/77; PULSE 72; RESP 18; TEMP 36.2; O2SAT 97
[2024-01-02] MEDS: Diphth,Pertus(ACell),Tet Adult 0.5 ML SYRINGE IM (16:25)
--- NOTE | 2024-01-02 16:26 | PC.NURSE ---
pt a&ox3, vss,pt c/o headache and rt knee pain 07/31, pt medicated with tetanus per orders, provider notified of pain, will continue with plan of care
--- NOTE | 2024-01-02 16:41 | PC.NURSE ---
wound cleaned, provider at bedside putting in michael
[2024-01-02] MEDS: Acetaminophen 325 MG TABLET 975 MG PO (16:55)
[2024-01-02] MEDS: Ibuprofen 400 MG TABLET PO (16:55)
[2024-01-02] MEDS: Bacitracin Oint 0.9 GM PACKET 1 APPL TOPICAL (16:55)
[2024-01-02 17:26] VITALS: BP 128/66; PULSE 67; RESP 18; TEMP 36.3; O2SAT 98
[2024-01-02 17:50] LABS: Influenza A PCR NEGATIVE (Negative); Influenza B PCR NEGATIVE (Negative); Resp Syncy Virus RNA Qual PCR NEGATIVE (Negative); SARS COV2 PCR INHOUSE NEGATIVE (Negative)
== END 2024-01-02 17:27 | disposition home or self-care (01) ==
PROVIDERS: Emergency Provider Emergency Medicine; PCP Internal Medicine
DX: S09.90XA Unspecified injury of head, initial encounter (principal); S01.01XA Laceration without foreign body of scalp, initial encounter; S86.911A Strain of unspecified muscle(s) and tendon(s) at lower leg level, right leg, initial encounter; W17.89XA Other fall from one level to another, initial encounter; Y93.89 Activity, other specified; Y92.89 Other specified places as the place of occurrence of the external cause; Y99.0 Civilian activity done for income or pay; Z96.651 Presence of right artificial knee joint; Z23 Encounter for immunization; Z03.818 Encounter for observation for suspected exposure to other biological agents ruled out
CPT/HCPCS: 0241U; 12002; 70450; 72125; 73564; 90471; 90715; 99284

== ENCOUNTER 2024-01-13 09:33 | Outpatient (REF) | payer MEDICARE, OTHER, SELFPAY ==
[2024-01-13 10:33] LABS: Influenza A PCR NEGATIVE (Negative); Influenza B PCR NEGATIVE (Negative); Resp Syncy Virus RNA Qual PCR NEGATIVE (Negative); SARS COV2 PCR INHOUSE NEGATIVE (Negative)
== END 2024-01-13 09:34 | disposition home or self-care (01) ==
LOC: HO.LAB 09:33
PROVIDERS: PCP Internal Medicine; Visit Provider Internal Medicine
DX: U07.1 COVID-19 (principal)
CPT/HCPCS: 0241U

== ENCOUNTER 2024-04-15 10:46 | Outpatient (REF) | payer MEDICARE, OTHER, SELFPAY ==
[2024-04-15 10:50] LABS: MANUAL DIFF FLAG NO
[2024-04-15 11:16] LABS: Appearance Urine Clear; Color Urine Yellow; Glucose Urine UA Negative (Negative); Leukocyte Esterase Urine Negative (Negative); Nitrite Urine Negative (Negative); PH 5.5 (5.0-9.0); Urine Blood Negative (Negative); Urine Ketones Negative (Negative); Urine Protein Negative (Neg-Trace)
[2024-04-15 11:36] LABS: Hematocrit 43.9 % (42.0-52.0); Hemoglobin 14.5 g/dl (14.0-18.0); Mean Corpuscular Hemoglobin 30.1 pg (27.0-33.0); Mean Corpuscular Volume 91.1 fL (80.0-98.0); Platelet Count 210 X10*3/uL (160-400); Red Blood Count 4.82 X10*6/uL (4.60-5.80); Red Cell Distribution Width 12.4 % (11.0-16.0); White Blood Count 5.7 X10*3/uL (4.8-10.8)
[2024-04-15 11:37] LABS: Basophils Percent Auto 0.4 % (0-2); Eosinophils Absolute Auto 0.3 X10*3/uL (0.0-0.4); Eosinophils Percent Auto 5.8 % (0-4); Imm Gran Abs Auto 0.02 X10*3/uL (0.00-0.03); Imm Gran Pct Auto 0.4 % (0.0-0.4); Lymphocytes Absolute Auto 2.4 X10*3/uL (1.2-4.9); Lymphocytes Percent Auto 42.7 % (20-40); Mean Platelet Volume 11.5 fL (9.4-12.4); Monocytes Absolute Auto 0.6 X10*3/uL (0.1-1.2); Monocytes Percent Auto 10.9 % (2-11); Neutrophils Absolute Auto 2.3 x10*3/uL (2.0-8.3); Neutrophils Percent Auto 39.8 % (45-73)
[2024-04-15 11:45] LABS: Estimated Average Glucose 151 mg/dL; Hemoglobin A1C 195.4442 umol/L; Hemoglobin A1c % 6.9 % (<6.0); Total Hemoglobin (HGBA1C) 3804.7287 umol/L
[2024-04-15 11:50] LABS: Alanine Aminotransferase 27 U/L (0-40); Albumin Level 4.3 g/dL (3.5-5.0); Alkaline Phosphatase 89 U/L (39-117); Anion Gap 11 (12-20); Aspartate Amino Transferase 35 U/L (5-37); Bilirubin Total 0.6 mg/dL (0.0-1.0); Blood Urea Nitrogen 17 mg/dL (9-16); Calcium 9.7 mg/dL (8.4-10.2); Carbon Dioxide 30 mmol/L (22-29); Chloride 104 mmol/L (96-108); Cholesterol 108 mg/dL (<200); Estimated Glomerular Filt Rate > 60; Glucose Fasting 135 mg/dL (60-99); HDL Cholesterol 28 mg/dL (>40); LDL Cholesterol Calculated 58 mg/dL (<100); Potassium 4.4 mmol/L (3.3-5.1); Sodium 141 mmol/L (135-145); Total Protein 7.3 g/dL (6.5-8.0); Triglycerides 110 mg/dL (<150)
[2024-04-15 12:22] LABS: Creatinine Urine 192.26 mg/dL; Microalbum/Creatinine Ratio Ur 5.7 ug/mg cr (<30); PSA,Total (Free>4and<10) < 0.10 ng/mL (0.00-4.00)
--- OUTSIDE RECORDS SUMMARY | 2024-04-15 12:51 | XMS_ITS ---
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 Name Role Phone Cordell Holden Primary Care Provider Results Component Value Reference Range Notes Complete Blood Count Auto Di ff (Not yet reviewed by provider) Interpretation: Performing Lab:[facility], [address] [place] [phone] Notes/Report: White Blood Count 5.7 4.8-10.8 X10*3/uL Red Blood Count 4.82 4.60-5.80 X10*6/uL Hemoglobin 14.5 14.0-18.0 g/dl Hematocrit 43.9 42.0-52.0 % Mean Corpuscular Volume 91.1 80.0-98.0 fL Mean Corpuscular Hemoglobin 30.1 27.0-33.0 pg Mean Corpuscular HGB Conc 33.0 31.0-36.0 g/dl Red Cell Distribution Width 12.4 11.0-16.0 % Platelet Count 210 160-400 X10*3/uL Mean Platelet Volume 11.5 9.4-12.4 fL Neutrophils Percent Auto 39.8 45-73 % Imm Gran Pct Auto 0.4 0.0-0.4 % Lymphocytes Percent Auto 42.7 20-40 % Monocytes Percent Auto 10.9 2-11 % Eosinophils Percent Auto 5.8 0-4 % Basophils Percent Auto 0.4 0-2 % NRBC Pct Auto 0.0 0.0-0.2 /100WBC Neutrophils Absolute Auto 2.3 2.0-8.3 x10*3/u L Imm Gran Abs Auto 0.02 0.00-0.03 X10*3/uL Lymphocytes Absolute Auto 2.4 1.2-4.9 X10*3/u L Monocytes Absolute Auto 0.6 0.1-1.2 X10*3/uL Eosinophils Absolute Auto 0.3 0.0-0.4 X10*3/u L Basophils Absolute Auto 0.0 0.0-0.2 X10*3/uL NRBC Abs Auto 0.000 0.0-0.012 X10*3/uL Comprehensive [place]. Panel Fa st (Not yet reviewed by provider) Interpretation: Performing Lab:[facility], [address] [place] [phone] Notes/Report: Sodium 141 135-145 mmol/L Potassium 4.4 3.3-5.1 mmol/L Chloride 104 96-108 mmol/L Carbon Dioxide 30 22-29 mmol/L Anion Gap 11 12-20 Blood Urea Nitrogen 17 9-16 mg/dL Creatinine 1.01 0.5-1.4 mg/dL Estimated Glomerular Filt Rate > 60 Chronic Kidney Disease: Estimated GFR < 60 mL/min/1.73m2 Severe Kidney Disease: Estimated GFR < 15 mL/min/1.73m2 Glucose Fasting 135 60-99 mg/dL A fasting glucose of 126 mg/dl or greater on more than one occasion is considered diagnostic of diabetes. Calcium 9.7 8.4-10.2 mg/dL Bilirubin Total 0.6 0.0-1.0 mg/dL Aspartate Amino Transferase 35 5-37 U/L Alanine Aminotransferase 27 0-40 U/L Total Protein 7.3 6.5-8.0 g/dL Albumin Level 4.3 3.5-5.0 g/dL Alkaline Phosphatase 89 39-117 U/L Microalbumin, Random (Not ye t reviewed by provider) Interpretation: Performing Lab:[facility], [address] [place] [phone] Notes/Report: Creatinine Urine 192.26 Microalbumin Urine 11.0 Microalbum/Creatinine Ratio Ur 5.7 <30 ug/mg cr Albumin/Creatinine Ratio Reference Ranges: Normal: < 30 ug/mg creatinine Microalbuminuria: 30 - 300 ug/mg creatinine Clinical Albuminuria: > 300 ug/mg creatinine Lipid Panel Reviewed date:04/15/2024 12:14:20 PM Interpretation: Performing Lab:[facility], [address] [place] [phone] Notes/Report: Triglycerides 110 <150 mg/dL Desirable Triglyceride: less than 150 mg/dL Borderline High Triglyceride 150-199 mg/dL High Triglyceride: 200-499 mg/dL Very High Triglyceride: greater than or equal to 5OO mg/dL Cholesterol 108 <200 mg/dL Desirable Cholesterol: less than 200 mg/dL Borderline High Cholesterol: 200-239 mg/dL High Cholesterol: greater than 239 mg/dL LDL Cholesterol Calculated 58 <100 mg/dL Desirable LDL: less than 100 mg/dL Near Optimal/Above Optimal LDL: 110-129 mg/dL Borderline High LDL: 130-159 mg/dL High LDL: 160-189 mg/dL Very High LDL: greater than or equal to 190 mg/dL HDL Cholesterol 28 >40 mg/dL Desirable HDL: greater than 40 mg/dL Note: This HDL assay may give artificially low results in patients with liver disease. PSA,Total (Free>4and<10) Reviewed date:04/15/2024 12:32:00 PM Interpretation: Performing Lab:[facility], [address] [place] [phone] Notes/Report: PSA,Total (Free>4and<10) < 0.10 0.00-4.00 ng/mL A Free PSA was not performed: The percentage of Free PSA can be used to enhance the differentiation of prostate cancer from benign prostatic disease in subjects whose PSA levels are between 4.0 and 10.0 ng/mL. For subjects whose PSA levels are below 4.0 or above 10.0 ng/mL, the risk of prostate cancer is determined on the basis of the PSA alone. Therefore the % Free PSA is recommended only for those subjects whose PSA levels are between 4.0 and 10.0 ng/mL. PSA methodology: Cheema Alinity i Chemiluminescent Microparticle Immunoassay (CMIA) Hemoglobin A1c Reviewed date:04/15/2024 12:13:12 PM Interpretation: Performing Lab:[facility], [address] [facility], [place] [phone] Notes/Report: Hemoglobin A1c % 6.9 <6.0 % Hemoglobin A1C Reference Range Adults: 4.8 - 6.0 % Non diabetic: < 6.0 % Goal: < 7.0 % Additional Action Suggested: > 8.0 % Note: Hemoglobin A1c results are invalid for patients with abnormal amounts of HbF. Blood transfusions may impact the HbA1c concentration in the patient sample. Estimated Average Glucose 151 eAG = Estimated average glucose which is %A1C expressed as average glucose, using the formula of the [id number] Average Glucose study (ADAG), Diabetes Care, Vol.31,#8, Oct. 2007 REASON FOR VISIT yearly fasting labs Encounters Encounter Location Date Provider Diagnosis Cordell Holden MD [address] [place] [address] [place] [phone] 04/15/2024 Cordell Holden Low HDL (under 40) E78.6 and Type 2 diabetes mellitus with diabetic neuropathy, unspecified E11.40 Assessments Encounter Date Diagnosis (ICD Code) Assessment Notes Treatment Notes Treatment Clinical Notes Section Notes 04/15/2024 Low HDL (under 40) (ICD-10 - E78.6) 04/15/2024 Type 2 diabetes mellitus with diabetic neuropathy, unspecified (ICD-10 - E11.40) Plan Of Treatment Pending Test Test Name Order Date Complete Blood Count Auto Diff 5 Comprehensive [place]. Panel Fast 5 Microalbumin, Random 04/15/2024 UA ClnCatch+Micro w/rflx Cult 04/15/2024 Next Appt Details Provider Name:Cordell Khanna ier, 04/26/2024 01:00:00 PM, [address] [place] [address], [address], [place], [place], [phone], Progress Notes * Alex GOMESDOB:[birth year] (73 yo M)Acc No.[id number]:04/15/2024 Progress Note Patient:?Alex GOMES Provider:?Cordell Holden MD :1950???Age:73 Y???Sex:Male Grupo e:04/15/2024 Address:[address] [place], [place] [id number] Subjective: * Chief Complaints: * ???1. Yearly fasting labs. * Medical History:? Objective: * Vitals:? Assessment: * Assessment: 1.?Low HDL (under 40) - E78. 6 (Primary)???2.?Type 2 diabetes mellitus with diabetic neuropathy, unspecified - E11.40??? Plan: * Treatment: 2.?Type 2 diabetes mellitus with diabetic neuropathy, unspecified?LAB: Complete Blood Count Auto Diff (Collection Date & Time - 04/15/2024 07:45 AM) ?LAB: Comprehensive [place]. Panel Fast (Collection Date & Time - 04/15/2024 07:45 AM) ?LAB: Microalbumin, Random (Collection Date & Time - 04/15/2024 07:45 AM) ?LAB: UA ClnCatch+Micro w/rflx Cult ?LAB: Lipid Panel (Collection Date & Time - 04/15/2024 07:45 AM) ?LAB: PSA,Total (Free>4and<10) (Collection Date & Time - 04/15/2024 07:45 AM) ?LAB: Hemoglobin A1c (Collection Date & Time - 04/15/2024 07:45 AM) * Procedure Codes:?87265 VENIP UNCT, ROUTINE* * * The named appointment provid er may or may not be the originator of this progress note, and it is not deemed complete until electronically signed by the appointment provider. Sign off status: Pending * Provider:?Cordell Holden MD Date:?0 04/15/2024 Generated for Iveth rosado/Emi/eTransmitting on:?04/15/2024 12:51 PM EST
--- OUTSIDE RECORDS SUMMARY | 2024-04-15 12:51 | XMS_ITS ---
Author Organization Cordell Holden MD Address [address] [place], [place] [phone] Care Team Providers Care Superintendent Plant Protection Name Role Phone Cordell Holden Primary Care Provider [phone] Allergies No Known Allergies REASON FOR VISIT needs note to return to work Medications Medication SIG (Take, Route, Frequency, Duration) Notes Start Date End Date Status Citalopram Hydrobromide 20 MG take 1 tablet by mouth every day Orally Once a day for 90 days Active Metoprolol Succinate ER 25 MG 1 tablet Orally Once a day for 90 days Active Atorvastatin Calcium 80 MG 1 tablet Oral ly Once a day for 90 days Active Diprolene AF 0.05 % 1 application to aff ected area Externally Once a day for 30 days 05/12/2018 Active Aspir-81 81 MG 1 tablet Orally Once a day for 90 days Active metFORMIN HCl 500 MG take 1 tablet by [facility] twice a day with a meal Orally twice a day for 90 days Active LORazepam 0.5 MG take 1 tablet by joseluis every day as needed for 30 days Orally Once a day for 30 days 01/13/2024 Active Vital Signs Blood pressure systolic 118 mm Hg 02/09/20 24 Blood pressure diastolic 74 mm Hg 024 Height 67.5 in 02/09/2024 Weight 225 lbs 02/09/2024 BMI 34.72 kg/m2 02/09/2024 weight is up 3 pounds since 01-13-24 Encounters Encounter Location Date Provider Diagnosis Cordell Holden MD [address] [place], [place] [phone] 02/09/2024 Cordell Holden Status post fall Z91.81 Assessments Encounter Date Diagnosis (ICD Code) Assessment Notes Treatment Notes Treatment Clinical Notes Section Notes 02/09/2024 Status post fall (ICD-10 - Z91.81) he has fallen and hit his leg and head from a high distance. he is having no issues with either and actually spent 2 weeks in [place] with no problems. is going to cut back on his work but not due to the injuryh just he wants to work less and will give him a return to work note Plan Of Treatment Treatment Notes Assessment Notes Status post fall he has fallen and hi t his leg and head from a high distance. he is having no issues with either and actually spent 2 weeks in [place] with no problems. is going to cut back on his work but not due to the injuryh just he wants to work less and will give him a return to work note Next Appt Details Provider Name:Cordell Khanna ier, 04/26/2024 01:00:00 PM, [address], [address], [place], [place], [phone], Progress Notes * Alex GOMESDOB:[birth year] (73 yo M)Acc No.[id number]:02/09/2024 Progress Notes Patient:?Alex Gomes Provider:?Cordell Holden MD :1950???Age:73 Y???Sex:Male Grupo e:02/09/2024 Address:[address] [place], [place] [phone] Subjective: * Chief Complaints: * ???Needs note to return to w ork * HPI: ???Symptom(s):? patient is a 73 yo male here for follow up. is feeling great. leg and head all feels good. is going to cut back from 3 days to 1 day.. feels that he has recovered from the fall off the truck. * ROS:?General/Constitutional:?Denies?Chills.?Denies?Fatigue.?Denies?Fever.?Denies?Headache.?ENT:?Patient denies?decreased sense of smell , any loss of taste , sore throat.?Denies?Sore throat.?Respiratory:?Denies?Cough.?Denies?Shortness of breath at rest.?Denies?Shortness of breath with exertion.?Gastrointestinal:?Denies?Diarrhea.?Denies?Nausea.?Musculoskeletal:?Patient denies?muscle aches.?Peripheral Vascular:?Patient denies?red and blue toes.? * Medical History:? * Surgical History:? * Hospitalization/Major Diagno stic Procedure:? * Medications:?TakingDiprolene AF 0.05 % Cream 1 application to affected area Externally Once a dayAspir-81 81 MG Tablet Delayed Release 1 tablet Orally Once a dayMetoprolol Succinate ER 25 MG Tablet Extended Release 24 Hour 1 tablet Orally Once a dayAtorvastatin Calcium 80 MG Tablet 1 tablet Orally Once a dayCitalopram Hydrobromide 20 MG Tablet take 1 tablet by mouth every day Orally Once a daymetFORMIN HCl 500 MG Tablet take 1 tablet by mouth twice a day with a meal Orally twice a dayLORazepam 0.5 MG Tablet take 1 tablet by mouth every day as needed for 30 days Orally Once a dayMedication List reviewed and reconciled with the patientTaking Diprolene AF 0.05 % Cream 1 application to affected area Externally Once a dayTaking Aspir-81 81 MG Tablet Delayed Release 1 tablet Orally Once a dayTaking Metoprolol Succinate ER 25 MG Tablet Extended Release 24 Hour 1 tablet Orally Once a dayTaking Atorvastatin Calcium 80 MG Tablet 1 tablet Orally Once a dayTaking Citalopram Hydrobromide 20 MG Tablet take 1 tablet by mouth every day Orally Once a dayTaking metFORMIN HCl 500 MG Tablet take 1 tablet by mouth twice a day with a meal Orally twice a dayTaking LORazepam 0.5 MG Tablet take 1 tablet by mouth every day as needed for 30 days Orally Once a dayMedication List reviewed and reconciled with the patient * Allergies:?N.K.D.A.yes[Aller gies Verified] Objective: * Vitals:?Ht: 67.5, Wt:225, BM I:34.72, BP:118/74 weight is up 3 pounds since 01-13-24. * Examination: ???General Examination: ?GENERAL APPEARANCE:?well developed, well nourished.?HEAD:?normocephalic.?SKIN:?good turgor.?HEART:?no murmurs, rubs, gallops , regular rate and rhythm.?LUNGS:?no wheezes, rales, rhonchi , good air movement , clear to auscultation bilaterally.? Assessment: * Assessment: 1.?Status post fall - Z91.81 (Primary)? Plan: * Treatment: * Procedure Codes:? * * Sign off status: Completed true * Provider:?Cordell Holden MD Date:?04/10/2023 Generated for Iveth rosado/Emi/Hakeemitting on:?04/15/2024 12:51 PM EST History and Physical Notes * HPI (History of Present Illness) Category Sub-Category Detail Notes Category Not es Symptom(s) patient is a 73 yo male here for follow up. is feeling great. leg and head all feels good. is going to cut back from 3 days to 1 day.. feels that he has recovered from the fall off the truck Examination Category Sub-Category Detail Notes Category Not es General Examination GENERAL APPEARANCE: well developed , well nourished HEAD: normocephalic HEART: no murmurs, rubs, ga llops , regular rate and rhythm LUNGS: no wheezes, rales, r honchi , good air movement , clear to auscultation bilaterally SKIN: good turgor
--- OUTSIDE RECORDS SUMMARY | 2024-04-15 12:51 | XMS_ITS ---
Author Organization Cordell Holden MD Address [address] [place] [phone] Care Team Providers Care Clinical Reimbursement Specialist Name Role Phone Cordell Holden Primary Care Provider REASON FOR VISIT refill Medications Medication SIG (Take, Route, Fr equency, Duration) Notes Start Date End Date Status LORazepam 0.5 MG take 1 tablet by joseluis th every day as needed for 30 days Orally Once a day for 30 days 02/26/2024 Active Encounters Encounter Location Date Provider Diagnosis Cordell Holden MD [address] [place] [address] [place] [phone] 02/26/2024 Cordell Holden Type 2 diabetes mellitus without complication, without long-term current use of insulin E11.9 Assessments Encounter Date Diagnosis (ICD Code) Assessment Notes Treatment Notes Treatment Clinical Notes Section Notes 02/26/2024 Type 2 diabetes mellitus without complication, without long-term current use of insulin (ICD-10 - E11.9) Plan Of Treatment Medication Medication Name Sig Start Date Stop Date Notes LORazepam 0.5 MG take 1 tablet by joseluis th every day as needed for 30 days Orally Once a day for 30 days 02/26/2024 Next Appt Details Provider Name:Cordell cintron, 04/26/2024 01:00:00 PM, [address] [place] [address], [place] [address], [place], [place], [phone], Progress Notes * Alex GOMESDOB:[birth year] (73 yo M)Acc No.[id number]:02/26/2024 Patient:?Alex Gomes :1950???Age:73 Y???Sex:Male Address:[address] [place] [address] [place], [address] * Refills? Refill LORazepam Tablet, 0.5 MG, Orally, 30, take 1 tablet by mouth every day as needed for 30 days, Once a day, 30 days, Refills=0 * true * Date:? Generated for Iveth rosado/Emi/Hakeemitting on:?04/15/2024 12:51 PM EST
== END 2024-04-15 10:47 | disposition home or self-care (01) ==
LOC: HO.LNP 10:46
PROVIDERS: Visit Provider Internal Medicine
DX: E78.6 Lipoprotein deficiency (principal); E11.40 Type 2 diabetes mellitus with diabetic neuropathy, unspecified; Z12.5 Encounter for screening for malignant neoplasm of prostate
CPT/HCPCS: 80053; 80061; 81003; 82043; 82570; 83036; 84153; 85025

== ENCOUNTER 2024-05-24 11:07 | Outpatient (REF) | payer MEDICARE, OTHER, SELFPAY ==
[2024-05-24 12:54] LABS: Prostate Specific Antigen < 0.10 ng/mL (<0.05-4.0)
--- OUTSIDE RECORDS SUMMARY | 2024-05-24 13:18 | XMS_ITS ---
Author Organization Cordell Holden MD Address [address] [place], [place] [phone] Care Team Providers Care Back Sizer Name Role Phone Cordell Holden Primary Care Provider Results Component Value Reference Range Notes Complete Blood Count Auto Di ff Reviewed date:04/26/2024 02:07:08 PM Interpretation:Jessica 04/26/24 cbc Performing Lab:[facility], [address] [place] [phone] Notes/Report: White Blood Count 5.7 4.8-10.8 X10*3/uL [...] NRBC Abs Auto 0.000 0.0-0.012 X10*3/uL Comprehensive [place]. Panel Fa st Reviewed date:04/16/2024 01:30:41 PM Interpretation: Performing Lab:[facility], [address] [place] [phone] Notes/Report: Sodium 141 135-145 mmol/L Potassium 4.4 [...] 3.5-5.0 g/dL Alkaline Phosphatase 89 39-117 U/L Lipid Panel Reviewed date:04/15/2024 12:14:20 PM Interpretation: Performing Lab:[facility], [address] [place] [phone] Notes/Report: Triglycerides 110 <150 mg/dL Desirable Triglyceride: [...] (Free>4and<10) Reviewed date:04/15/2024 12:32:00 PM Interpretation: Performing Lab:[facility], [address] [place] [phone] Notes/Report: PSA,Total (Free>4and<10) < 0.10 0.00-4.00 ng/mL [...] Cheema Alinity i Chemiluminescent Microparticle Immunoassay (CMIA) Microalbumin, Random Reviewed date:04/15/2024 05:37:24 PM Interpretation: Performing Lab:[facility], [address] [place] [phone] Notes/Report: Creatinine Urine 192.26 Microalbumin Urine 11.0 Microalbum/Creatinine Ratio Ur 5.7 <30 ug/mg cr Albumin/Creatinine Ratio Reference Ranges: Normal: < 30 ug/mg creatinine Microalbuminuria: 30 - 300 ug/mg creatinine Clinical Albuminuria: > 300 ug/mg creatinine Hemoglobin A1c Reviewed date:04/15/2024 12:13:12 PM Interpretation: Performing Lab:[facility], [address] [place] [phone] Notes/Report: Hemoglobin A1c % 6.9 <6.0 % [...] average glucose, using the formula of the G5X-Loponur Average Glucose study (ADAG), Diabetes Care, Vol.31,#8, Oct. 2007 REASON FOR VISIT yearly fasting labs, CBACK CBC Encounters Encounter Location Date Provider Diagnosis Cordell Holden MD [address] [place] [address] [place] [phone] 04/15/2024 Cordell Holden Low HDL (under 40) E78.6 and Type 2 diabetes mellitus with diabetic neuropathy, unspecified E11.40 Assessments Encounter Date Diagnosis (ICD Code) Assessment Notes Treatment Notes Treatment Clinical Notes Section Notes 04/15/2024 Low HDL (under 40) (ICD-10 - E78.6) 04/15/2024 Type 2 diabetes mellitus with diabetic neuropathy, unspecified (ICD-10 - E11.40) Plan Of Treatment Pending Test Test Name Order Date UA ClnCatch+Micro w/rflx Cult 04/15/2024 Next Appt Details Provider Name:Cordell cintron, 10/19/2024 07:45:00 AM, [address] [place] [address], [address] [place] [address], [phone], Provider Name:Cordell cintron, 11/02/2024 01:30:00 PM, [address] [place] [address], [address], [phone], Provider Name:Cordell cintron, 04/22/2025 07:45:00 AM, [address] [place] [address], [address], [phone], Provider Name:Cordell Khanna ier, 04/29/2025 01:00:00 PM, [address], [address], [place], [place], [phone], Progress Notes * Alex GOMESDOB:[birth year] (73 yo M)Acc No.[id number]:04/15/2024 Progress Note Patient:?Alex GOMES Provider:?Cordell Holden MD :1950???Age:73 Y???Sex:Male Grupo e:04/15/2024 Address:[address] [place], [place] [phone] Subjective: * Chief Complaints: * ???1. Yearly fasting labs. 2 . CBACK CBC. * Medical History:? Objective: * Vitals:? Assessment: * Assessment: 1.?Low HDL (under 40) - E78. 6 (Primary)???2.?Type 2 diabetes mellitus with diabetic neuropathy, unspecified - E11.40??? Plan: * Treatment: 2.?Type 2 diabetes mellitus with diabetic neuropathy, unspecified?LAB: UA ClnCatch+Micro w/rflx Cult ?LAB: Complete Blood Count Auto Diff (Collection Date & Time - 04/15/2024 07:45 AM) ?LAB: Comprehensive [place]. Panel Fast (Collection Date & Time - 04/15/2024 07:45 AM) ?LAB: Lipid Panel (Collection Date & Time - 04/15/2024 07:45 AM) ?LAB: PSA,Total (Free>4and<10) (Collection Date & Time - 04/15/2024 07:45 AM) ?LAB: Microalbumin, Random (Collection Date & Time - 04/15/2024 07:45 AM) ?LAB: Hemoglobin A1c (Collection Date & Time - 04/15/2024 07:45 AM) * Procedure Codes:?97978 VENIP UNCT, ROUTINE* * * The named appointment provid er may or may not be the originator of this progress note, and it is not deemed complete until electronically signed by the appointment provider. Sign off status: Pending * Provider:?Cordell Holden MD Date:?0 04/15/2024 Generated for Iveth rosado/Emi/Juana on:?05/24/2024 01:18 PM EST
--- OUTSIDE RECORDS SUMMARY | 2024-05-24 13:18 | XMS_ITS | Patient Health Record ---
Author Organization [facility] Address [address] [place] [address] Care Team Providers Care Vice President Industrial Relations Name Role Phone Adina LANGSTON, Cordell Primary Care Provider Vahe Bautista [phone] ALLERGIES No Known Allergies RESULTS Component Value Reference Range Notes Glucose, Whole Blood Reviewed date:06/06/2023 07:24:17 PM Interpretation: Performing Lab:[facility], [address] [place] [place] [phone] Notes/Report: Glucose, Whole Blood 105 60-115 mg/dL METER # : [id number] Pathology Reviewed date:06/25/2023 08:24:14 AM Interpretation: Performing Lab:[facility], [address] [place] [place] [phone] Notes/Report: REASON FOR REFERRAL No Information MEDICATIONS Medication SIG (Take, Route, Frequency, Duration) Notes Start Date End Date Status Lorazepam as needed Active Citalopram Hydrobromide 20 MG 1 tablet Orally Once a day Active Aspirin 81 Once a day Active Atorvastatin Calcium 80 MG 1 tablet Oral ly Once a day Active metFORMIN HCl 500 MG 1 tablet with a adrienne l Orally twice a day Active Metoprolol Tartrate 25 MG 1 tablet with food Orally once a day Active IMMUNIZATIONS Vaccine Route Administration Date Status Comme nts Influenza Unknown 01/22/2019 Administered Influenza Unknown 02/21/2023 Administered SOCIAL HISTORY Tobacco Use: Social History Observation Description Date Details (start date - stop date) Never Smoker NA - NA Sex Assigned At : Social History Observation Description Sex Assigned At Unknown Tobacco Use/Smoking Question Answer Notes Patient is a nonsmoker Alcohol Screen Question Answer Notes Did you have a drink contain ing alcohol in the past year? Yes How often did you have a dri nk containing alcohol in the past year? Monthly or less (1 point) How many drinks did you have on a typical day when you were drinking in the past year? 1 or 2 drinks (0 point) How often did you have 6 or more drinks on one occasion in the past year? Never (0 point) Points 1 Interpretation Negative PROBLEMS Problem Type ICD Code Onset Dates Problem Status W/U Status Risk SNOMED Code Notes Problem Encounter for screening for malignant neoplasm of colon (Z12.11) Active confirmed 616385488 Problem History of adenomatous polyp of colon (Z86.010) Active confirmed 366720718 Problem Diverticulosis of large intestine without perforation or abscess without bleeding (K57.30) Active confirmed Diverticul ar disease of colon (829343943) Problem Preprocedural examination (Z01.818) Active confirmed [id number] Problem Rectal bleed (K62.5) Active confirmed 50498370 Problem Long-term use of aspirin therapy (Z79.82) Active confirmed 285694540 Encounters Encounter Location Date Provider Diagnosis [facility] [address] [place] [phone] 06/06/2023 Vahe Schreiber Colon polyps K63.5 ; Hematochezia K92.1 ; Diverticulosis of large intestine without perforation or abscess without bleeding K57.30 and Other hemorrhoids K64.8 [facility] [address] [facility] [address] [place] [address] 07/16/2023 Vahe Schreiber ASSESSMENTS Encounter Date Diagnosis Assessment Notes Treatment Notes Treatment Clinical Notes 06/06/2023 Colon polyps (ICD-10 - K63.5) 06/06/2023 Hematochezia (ICD-10 - K92.1) 06/06/2023 Diverticulosis of large intestine without perforation or abscess without bleeding (ICD-10 - K57.30) 06/06/2023 Other hemorrhoids (ICD-10 - K64.8) PLAN OF TREATMENT Future Test Test Name Order Date COLONOSCOPY 08/04/2019 COLONOSCOPY 03/20/2023 Insurance Providers Payer Name Payer Address Payer Phone Subscriber Number Group Number Insured Name Patient Relationship to Insured Coverage Start Date Coverage End Date MEDICARE OF [place] [address] [place] [address] [place] [address] [id number] KENTON GOMES Self - patient is the insured [facility] [address] [place] [address] [id number] K[place]ON GOMES Self - patient is the insured MEDICAL (GENERAL) HISTORY Medical History History ICD Code 2013 AL--1 stent placed in the RCA--was on Brilinta Elevated Cholesterol NIDDM Hx of prostate cancer-surgery as below HTN Denies CVA,Lung disease,renal disease 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
--- OUTSIDE RECORDS SUMMARY | 2024-05-24 13:18 | XMS_ITS ---
Author Organization [facility] Address [address] [place] [address] Care Team Providers Care Deputy Fire Marshal Name Role Phone Cordell Holden MD Primary Care Provider Vahe Bautista Unavailable [phone] REASON FOR VISIT rectal bleed,hx polyps PROBLEMS Problem Type ICD Code Onset Dates Problem Status W/U Status Risk SNOMED Code Notes Problem Diverticulosis of large intestine without perforation or abscess without bleeding (K57.30) Active confirmed Diverticul ar disease of colon (435809046) Encounters Encounter Location Date Provider Diagnosis [facility] [address], [place] [phone] 06/06/2023 Vahe Schreiber Colon polyps K63.5 ; Hematochezia K92.1 ; Diverticulosis of large intestine without perforation or abscess without bleeding K57.30 and Other hemorrhoids K64.8 ASSESSMENTS Encounter Date Diagnosis Assessment Notes Treatment Notes Treatment Clinical Notes 06/06/2023 Colon polyps (ICD-10 - K63.5) 06/06/2023 Hematochezia (ICD-10 - K92.1) 06/06/2023 Diverticulosis of large intestine without perforation or abscess without bleeding (ICD-10 - K57.30) 06/06/2023 Other hemorrhoids (ICD-10 - K64.8) PLAN OF TREATMENT No Information
--- OUTSIDE RECORDS SUMMARY | 2024-05-24 13:18 | XMS_ITS ---
Author Organization Cordell Holden MD Address [address] [place], [place] [id number] Care Team Providers Care Air Tank Assembler Name Role Phone Cordell Holden Primary Care Provider [phone] Allergies No Known Allergies REASON FOR VISIT review labs, CBACK CBC Medications Medication SIG (Take, Route, Frequency, Duration) Notes Start Date End Date Status Aspir-81 81 MG 1 tablet Orally Once a day for 90 days Active Diprolene AF 0.05 % 1 application to aff ected area Externally Once a day for 30 days 05/12/2018 Active LORazepam 0.5 MG take 1 tablet by joseluis every day as needed for 30 days Orally Once a day for 30 days 04/26/2024 Active metFORMIN HCl 500 MG take 1 tablet by mo [facility] twice a day with a meal Orally twice a day Active Atorvastatin Calcium 80 MG TAKE 1 TABLET BY MOUTH EVERY DAY FOR 90 DAYS Active Metoprolol Succinate ER 25 MG 1 tablet Orally Once a day for 90 days Active Citalopram Hydrobromide 20 MG take 1 tablet by mouth every day Orally Once a day Active Social History Tobacco Use: Social History Observation Description Date Details (start date - stop date) Never Smoker NA - NA Tobacco Use/Smoking Question Answer Notes Patient is a nonsmoker Additional Findings: Tobacco Non-User Cu rrent non-smoker, currently using no form of tobacco Alcohol Screen Question Answer Notes Did you [...] Never (0 point) Points 1 Interpretation Negative Vital Signs Blood pressure systolic 124 mm Hg 04/26/19 25 Blood pressure diastolic 72 mm Hg 025 Height 67.5 in 04/26/2024 Weight 221 lbs 04/26/2024 BMI 34.1 kg/m2 04/26/2024 weight is down 4 pounds [facility] 02-09-24 Encounters Encounter Location Date Provider Diagnosis Cordell Holden MD [address] [place] [address] [place] [phone] 04/26/2024 Cordell Holdne Type 2 diabetes mellitus without complication, without long-term current use of insulin E11.9 ; Bilateral carpal tunnel syndrome G56.03 ; Status post placement of bare metal coronary artery stent Z95.5 ; Anxiety F41.9 ; Low HDL (under 40) E78.6 ; Colon cancer screening Z12.11 and Depression screening Z13.31 Assessments Encounter Date Diagnosis (ICD Code) Assessment Notes Treatment Notes Treatment Clinical Notes Section Notes 04/26/2024 Type 2 diabetes mellitus without complication, without long-term current use of insulin (ICD-10 - E11.9) 04/26/2024 Bilateral carpal tunnel syndrome (ICD-10 - G56.03) not bad enough to treat 04/26/2024 Status post placement of bare metal coronary artery stent (ICD-10 - Z95.5) 04/26/2024 Anxiety (ICD-10 - F41.9) doing well, will continue current regiment 04/26/2024 Low HDL (under 40) (ICD-10 - E78.6) stable, will contnue current regiment 04/26/2024 Colon cancer screening (ICD-10 - Z12.11) no stool, sent home with cards, will return to office 04/26/2024 Depression screening (ICD-10 - Z13.31) negative screen Plan Of Treatment Medication Medication Name Sig Start Date Stop Date Notes LORazepam 0.5 MG take 1 tablet by joseluis th every day as needed for 30 days Orally Once a day for 30 days 04/26/2024 metFORMIN HCl 500 MG take 1 tablet by mo uth twice a day with a meal Orally twice a day Atorvastatin Calcium 80 MG TAKE 1 TABLET BY MOUTH EVERY DAY FOR 90 DAYS Citalopram Hydrobromide 20 MG take 1 tab let by mouth every day Orally Once a day Treatment Notes Assessment Notes Bilateral carpal tunnel syndrome not bad enough to treat Anxiety doing well, will con tinue current regiment Low HDL (under 40) stable, will contnue current regiment Colon cancer screening no stool, sent ho tn with cards, will return to office Depression screening negative screen Next Appt Details Follow Up: 6 Months, Reason: Provider Name:Cordell cintron, 10/19/2024 07:45:00 AM, [address] [place] [address], [phone], Provider Name:Cordell cintron, 11/02/2024 01:30:00 PM, [address] [place] [address], [phone], Provider Name:Cordell cintron, 04/22/2025 07:45:00 AM, [address] [place] [address], [phone], Provider Name:Cordell cintron, 04/29/2025 01:00:00 PM, [address] [place] [address], [phone], Progress Notes * Alex GOMESDOB:[birth year] (73 yo M)Acc No.[id number]:04/26/2024 Patient:?Alex GOMES Provider:?Cordell Holden MD :1950???Age:73 Y???Sex:Male Grupo e:04/26/2024 Address:[address] [place], [place] [id number] Subjective: * Chief Complaints: * ???Review labsCBACK CBC * HPI: ???Depression Screening:?PHQ-9?Little interest or pleasure in doing things?Not at all,?Feeling down, depressed, or hopeless?Not at all,?Trouble falling or staying asleep, or sleeping too much?Not at all,?Feeling tired or having little energy?Not at all,?Poor appetite or overeating?Not at all,?Feeling bad about yourself or that you are a failure, or have let yourself or your family down?Not at all,?Trouble concentrating on things, such as reading the newspaper or watching television?Not at all,?Moving or speaking so slowly that other people could have noticed; or the opposite, being so fidgety or restless that you have been moving around a lot more than usual?Not at all,?Thoughts that you would be better off or of hurting yourself in some way?Not at all,?Total Score?0.?Interpretation and Intervention?Depression Screening Findings?Negative,?Follow-Up for Depression?: review of PHQ-9 found negative result, no follow-up needed.?Communication Needs:?Communication Needs?Does the patient have a hearing impairment?No,?Does the patient have a vision impairment??Yes,?If yes, what is the vision impairment??Glasses,?Does the patient have a cognition impairment??No.?Fall Risk:?History?Have you had any falls with injury in the past year??No,?Have you had two or more falls in the past year??No.?SDOH Questions:?SDOH Questions?In the past year have you been worried about losing housing??No,?In the past year have you or any family members you live with been unable to get any of the following when it was really needed? Check all that apply:?None.?Symptom(s):? patient is a 73 yo male here for visit with reta of recent labs ansd follow up of chronic issues. * ROS:?General/Constitutional:?Patient denies?fatigue, headache.?Change in appetite?denies.?Chills?denies.?Fever?denies.?Ophthalmologic:?Blurred vision?denies.?Discharge?denies.?Pain?denies.?ENT:?Decreased hearing?denies.?Sore throat?denies.?Swollen glands?denies.?Endocrine:?Cold intolerance?denies.?Excessive thirst?denies.?Heat intolerance?denies.?Weight loss?denies.?Respiratory:?Cough?denies.?Shortness of breath at rest?denies.?Shortness of breath with exertion?denies.?Wheezing?denies.?Cardiovascular:?Chest pain at rest?denies.?Chest pain with exertion?denies.?Irregular heartbeat?denies.?Shortness of breath?denies.?Gastrointestinal:?Abdominal pain?denies.?Change in bowel habits?denies.?Diarrhea?denies.?Nausea?denies.?Rectal bleeding?denies.?Vomiting?denies .?Genitourinary:?Blood in urine?denies.?Difficulty urinating?denies.?Frequent urination?denies.?Musculoskeletal:?Patient denies?muscle aches.?Painful joints?denies.?Weakness?denies.?Peripheral Vascular:?Patient denies?red and blue toes.?Skin:?Dry skin?denies.?Itching?denies.?Denies?Mole(s),? changes in moles, new moles or any lesions of concern.?Denies?Photosensitivity.?Rash?denies.?Neurologic:?Dizziness?denies.?Fainting?denies.?Headache?denies.? * Medical History:? * Surgical History:? * Hospitalization/Major Diagno stic Procedure:? * Family History:?Father: dece ased 51 yrs.?Mother: 82 yrs.? Father- [place] Mother- Dementia, Denies mental health/substance abuse family history, Denies mental health/substance abuse family history, No pertinent family medical history, Denies mental health/substance abuse family history. * Social History:?Tobacco Use:?Tobacco Use/Smoking?Patient is a?nonsmoker,?Additional Findings: Tobacco Non-User?Current non-smoker, currently using no form of tobacco.?Drugs/Alcohol:?Alcohol Screen?Did you have a drink containing alcohol in the past year??Yes,?How often did you have a drink containing alcohol in the past year??Monthly or less (1 point),?How many drinks did you have on a typical day when you were drinking in the past year??1 or 2 drinks (0 point),?How often did you have 6 or more drinks on one occasion in the past year??Never (0 point),?Points?1,?Interpretation?Negative.?Miscellaneous:?Caffeine: no, frequency:. Children: yes. Community involvements: yes. Exercise: yes, walks for 25 minutes a couple times a week. Home smoke detector use: yes. Housing: owning. Living with: alone. Marital status: single. Occupation: weeks/months/years, works full-time. Pets: none. Travel outside of the [place]: no. * Medications:?TakingDiprolene AF 0.05 % Cream 1 application to affected area Externally Once a day Aspir-81 81 MG Tablet Delayed Release 1 tablet Orally Once a day Metoprolol Succinate ER 25 MG Tablet Extended Release 24 Hour 1 tablet Orally Once a day Citalopram Hydrobromide 20 MG Tablet take 1 tablet by mouth every day Orally Once a day metFORMIN HCl 500 MG Tablet take 1 tablet by mouth twice a day with a meal Orally twice a day LORazepam 0.5 MG Tablet take 1 tablet by mouth every day as needed for 30 days Orally Once a day Atorvastatin Calcium 80 MG Tablet TAKE 1 TABLET BY MOUTH EVERY DAY FOR 90 DAYS Medication List reviewed and reconciled with the patientTaking Diprolene AF 0.05 % Cream 1 application to affected area Externally Once a day Taking Aspir-81 81 MG Tablet Delayed Release 1 tablet Orally Once a day Taking Metoprolol Succinate ER 25 MG Tablet Extended Release 24 Hour 1 tablet Orally Once a day Taking Citalopram Hydrobromide 20 MG Tablet take 1 tablet by mouth every day Orally Once a day Taking metFORMIN HCl 500 MG Tablet take 1 tablet by mouth twice a day with a meal Orally twice a day Taking LORazepam 0.5 MG Tablet take 1 tablet by mouth every day as needed for 30 days Orally Once a day Taking Atorvastatin Calcium 80 MG Tablet TAKE 1 TABLET BY MOUTH EVERY DAY FOR 90 DAYS Medication List reviewed and reconciled with the patient * Allergies:?N.K.D.A.yes[Aller gies Verified] Objective: * Vitals:?Ht: 67.5, Wt: 221, B AR:34.1, BP:124/72, Wt-k.24. weight is down 4 pounds since 02-09-24. * ???Past Orders: ???Lab:Microalbumin, Random (Order Date - 04/15/2024) (Collection Date & Time - 04/15/2024 07:45 AM) ? Value Reference Range ?Creatinine Urine 192.26 - m g/dL ?Microalbumin Urine 11.0 - mg/L ?Microalbum Creatinine Ratio Ur 5.7 <30 - ug/mg cr ???Lab:Hemoglobin A1c (Order Date - 04/15/2024) (Collection Date & Time - 04/15/2024 07:45 AM) ? Value Reference Range ?Hemoglobin A1c % 6.9 H <6. 0 - % ?Estimated Average Glucose 151 - mg/dL ???Lab:UA CC w/rflx Micro + Cult (Order Date - 04/15/2024) (Collection Date & Time - 04/15/2024 07:45 AM) ? Value Reference Range ?Color Urine Yellow - ?Appearance Urine Clear - ?PH 5.5 5.0-9.0 - ?Glucose Urine UA Negative Neg ative - mg/dL ?Urine Blood Negative Negative - ?Specific [place] - Urine 1.020 1.005-1.025 - ?Urine Protein Negative Neg-Tr syeda - mg/dL ?Urine Ketones Negative Negati ve - mg/dL ?Nitrite Urine Negative Negati ve - ?Leukocyte Esterase Urine Negative Negative - ???Lab:Comprehensive [place]. P ally Fast (Order Date - 04/15/2024) (Collection Date & Time - 04/15/2024 07:45 AM) ? Value Reference Range ?Sodium 141 135-145 - mmo l/L ?Bilirubin Total 0.6 0.0- 1.0 - mg/dL ?Aspartate Amino Transferase 35 5-37 - U/L ?Alanine Aminotransferase 27 0-40 - U/L ?Total Protein 7.3 6.5-8. 0 - g/dL ?Albumin Level 4.3 3.5-5. 0 - g/dL ?Alkaline Phosphatase 89 39-117 - U/L ?Potassium 4.4 3.3-5.1 - mmol/L ?Chloride 104 96-108 - mm ol/L ?Carbon Dioxide 30 H 22-29 - mmol/L ?Anion Gap 11 L 12-20 - ?Blood Urea Nitrogen 17 H 9-16 - mg/dL ?Creatinine 1.01 0.5-1.4 - mg/dL ?Estimated Glomerular Filt Rate > 60 - ?Glucose Fasting 135 H 60-9 9 - mg/dL ?Calcium 9.7 8.4-10.2 - m g/dL ???Lab:Lipid Panel (Order Da te - 04/15/2024) (Collection Date & Time - 04/15/2024 07:45 AM) ? Value Reference Range ?Triglycerides 110 <150 - mg/dL ?Cholesterol 108 <200 - m g/dL ?LDL Cholesterol Calculated 58 <100 - mg/dL ?HDL Cholesterol 28 L >40 - mg/dL ???Lab:PSA,Total (Free>4and< 10) (Order Date - 04/15/2024) (Collection Date & Time - 04/15/2024 07:45 AM) ? Value Reference Range ?PSA,Total (Free>4and<10) < 0.10 0.00-4.00 - ng/mL * Examination: ???General Examination: ?GENERAL APPEARANCE:?well developed, well nourished, in no acute distress.?HEAD:?normocephalic, atraumatic.?EYES:?pupils equal, round, reactive to light and accommodation, sclera non-icteric.?EARS:?normal.?ORAL CAVITY:?mucosa moist.?THROAT:?clear.?NECK/THYROID:?neck supple, full range of motion, no cervical lymphadenopathy, no bruits.?SKIN:?warm and dry, no suspicious lesions.?HEART:?regular rate and rhythm, S1, S2 normal, no murmurs.?LUNGS:?clear to auscultation bilaterally.?ABDOMEN:?soft, nontender, nondistended, bowel sounds present, normal, no organomegaly , no masses palpable.?RECTAL EXAM:?normal tone, no external hemorrhoids, no masses palpable, prostate normal, no stool sent with card.?MALE GENITOURINARY:?circumcised, no penile lesions or discharge, no testicular mass.?EXTREMITIES:?no clubbing, cyanosis, or edema.?NEUROLOGIC:?nonfocal, motor strength normal upper and lower extremities, sensory exam intact.?PODIATRIC:?normal pinprick, no palpable pulses, normal light touch.?FOOT EXAM:?.? Assessment: * Assessment: 1.?Type 2 diabetes mellitus without complication, without long-term current use of insulin - E11.9 (Primary)???2.?Bilateral carpal tunnel syndrome - G56.03???3.?Status post placement of bare metal coronary artery stent - Z95.5???4.?Anxiety - F41.9???5.?Low HDL (under 40) - E78.6???6.?Colon cancer screening - Z12.11???7.?Depression screening - Z13.31??? Plan: * Treatment: 2.?Bilateral carpal tunnel s yndrome? Notes: not bad enough to treat?? 3.?Anxiety? Continue Citalopram Hydrobromide Tablet, 20 MG, take 1 tablet by mouth every day, Orally, Once a day.?? Notes: doing well, will continue current regiment?? 4.?Low HDL (under 40)? Continue Atorvastatin Calcium Tablet, 80 MG, TAKE 1 TABLET BY MOUTH EVERY DAY FOR 90 DAYS.?? Notes: stable, will contnue current regiment?? 5.?Colon cancer screening? Notes: no stool, sent home with cards, will return to office?? 6.?Depression screening? Notes: negative screen?? * Procedure Codes:? * Follow Up:?6 Months * * Sign off status: Completed true * Provider:?Cordell Holden MD Date:?0 04/26/2024 Generated for Iveth rosado/Emi/Juana on:?05/24/2024 01:17 PM EST History and Physical Notes * HPI (History of Present Illness) Category Sub-Category Detail Notes Category Not es Symptom(s) patient is a 73 yo male here for visit with regiew of recent labs ansd follow up of chronic issues. Depression Screening PHQ-9 Little inte rest or pleasure in doing things: Not at all Feeling down, depressed, or hopeless: No t at all Trouble falling or staying asleep, or sl eeping too much: Not at all Feeling tired or having little energy: N ot at all Poor appetite or overeating: Not at all Feeling bad about yourself o r that you are a failure, or have let yourself or your family down: Not at all Trouble concentrating on thi ngs, such as reading the newspaper or watching television: Not at all Moving or speaking so slowly that other people could have noticed; or the opposite, being so fidgety or restless that you have been moving around a lot more than usual: Not at all Thoughts that you would be b caty off or of hurting yourself in some way: Not at all Total Score: 0 Interpretation and Intervention Depression [place] Findings: Negative Follow-Up for Depression: : review of PH Q-9 found negative result, no follow-up needed SDOH Questions SDOH Questions In the past year have you been worried about losing housing?: No In the past year have you or any family members you live with been unable to get any of the following when it was really needed? Check all that apply:: None Fall Risk History Have you had any falls with injury i n the past year?: No Have you had two or more falls in the st year?: No Communication Needs Communication Needs Does the patient have a hearing impairment: No Does the patient have a vision impairmen t?: Yes ?If yes, what is the vision impairment?: Glasses Does the patient have a cognition impair ment?: No Examination Category Sub-Category Detail Notes Category Not es General Examination GENERAL APPEARANCE: well dev eloped, well nourished, in no acute distress HEAD: normocephalic, atrau matic EYES: pupils equal, round, reactive to light and accommodation, sclera non-icteric EARS: normal THROAT: clear NECK/THYROID: neck supple, full ra nge of motion, no cervical lymphadenopathy, no bruits HEART: regular rate and rhy thm, S1, S2 normal, no murmurs LUNGS: clear to auscultatio n bilaterally ABDOMEN: soft, nontender, non distended, bowel sounds present, normal, no organomegaly , no masses palpable NEUROLOGIC: nonfocal, motor stre ngth normal upper and lower extremities, sensory exam intact SKIN: warm and dry, no rudy picious lesions EXTREMITIES: no clubbing, cyanosi s, or edema MALE GENITOURINARY: circumcised, no peni le lesions or discharge, no testicular mass RECTAL EXAM: normal tone, no exte rnal hemorrhoids, no masses palpable, prostate normal, no stool sent with card ORAL CAVITY: mucosa moist FOOT EXAM: Date: 04/26/2024 normal pinprick . no palpable pulse. normal light touch. PODIATRIC: normal pinprick, no palpable pulses, normal light touch
--- OUTSIDE RECORDS SUMMARY | 2024-05-24 13:18 | XMS_ITS ---
Author Organization [facility] Address [address] [place] [phone] Care Team Providers Care Pre K Special Education Teacher Name Role Phone Cordell Holden MD Primary Care Provider Vahe Bautista [phone] REASON FOR VISIT RECTAL BLEEDING Encounters Encounter Location Date Provider Diagnosis [facility] [address] [place] [phone] 07/16/2023 Vahe Schreiber PLAN OF TREATMENT No Information
--- OUTSIDE RECORDS SUMMARY | 2024-05-24 13:18 | XMS_ITS ---
Author Organization Cordell Holden MD Address [address] [place] [phone] Care Team Providers Care Can Inspector Name Role Phone Cordell Holden Primary Care Provider Results Component Value Reference Range Notes Occult Blood, Stool, Guaiac (Not yet reviewed by provider) Interpretation:Negative Performing Lab: Notes/Report: Negative Occult Blood, Stool, Guaiac Neg REASON FOR VISIT Stool card Encounters Encounter Location Date Provider Diagnosis Cordell Holden MD [facility] [address] [place] [phone] 04/30/2024 Cordell Holden Colon cancer screening Z12.11 Assessments Encounter Date Diagnosis (ICD Code) Assessment Notes Treatment Notes Treatment Clinical Notes Section Notes 04/30/2024 Colon cancer screening (ICD-10 - Z12.11) Plan Of Treatment Pending Test Test Name Order Date Occult Blood, Stool, Guaiac 04/30/2024 Next Appt Details Provider Name:Cordell cintron, 10/19/2024 07:45:00 AM, [address] [place] [address], [address], [phone], Provider Name:Cordell cintron, 11/02/2024 01:30:00 PM, [address] [place] [address], [address], [phone], Provider Name:Cordell Khanna ier, 04/22/2025 07:45:00 AM, [address], [address], [place], [phone], Provider Name:Cordell Khanna ier, 04/29/2025 01:00:00 PM, [address], [address], [place], [phone], Progress Notes * ELISEO Alex CherriDOB:[birth year] (73 yo M)Acc No.[id number]:04/30/2024 Patient:?Alex GOMES :1950???Age:73 Y???Sex:Male Address:[address] [place] [address] [place], [address] Subjective: * Chief Complaints: * ???Stool card * Medical History:? * Surgical History:? * Hospitalization/Major Diagno stic Procedure:? * Medications:? Objective: * Vitals:? * Physical Examination:? Assessment: * Assessment: 1.?Colon cancer screening - Z12.11 (Primary)??? Plan: * Treatment: ? Value Reference Range ?Occult Blood, Stool, Guaiac Neg * Procedure Codes:?66769 TEST FOR BLOOD, FECES * true * Date:? Generated for Iveth rosado/Emi/eTransmitting on:?05/24/2024 01:18 PM EST
--- OUTSIDE RECORDS SUMMARY | 2024-05-24 13:19 | XMS_ITS ---
Author Organization [facility] Address [address] [place] [phone] Care Team Providers Care Porcelain Waxer Name Role Phone Cordell Holden MD Primary Care Provider Vahe Bautista [phone] REASON FOR VISIT FYI Encounters Encounter Location Date Provider Diagnosis [facility] [address] [place] [phone] 03/20/2023 Vahe Schreiber PLAN OF TREATMENT No Information
== END 2024-05-24 11:08 | disposition home or self-care (01) ==
LOC: HO.LAB 11:07
PROVIDERS: PCP Internal Medicine; Visit Provider Urology
DX: C61 Malignant neoplasm of prostate (principal); Z12.5 Encounter for screening for malignant neoplasm of prostate
CPT/HCPCS: 36415; 84153

== ENCOUNTER 2024-10-19 10:16 | Outpatient (REF) | payer MEDICARE, OTHER, SELFPAY ==
[2024-10-19 10:48] LABS: Alanine Aminotransferase 20 U/L (0-40); Albumin Level 4.4 g/dL (3.5-5.0); Alkaline Phosphatase 79 U/L (39-117); Aspartate Amino Transferase 35 U/L (5-37); Cholesterol 131 mg/dL (<200); HDL Cholesterol 29 mg/dL (>40); Total Protein 6.9 g/dL (6.5-8.0); Triglycerides 200 mg/dL (<150)
[2024-10-19 10:51] LABS: Hemoglobin A1C 177.6562 umol/L; Total Hemoglobin (HGBA1C) 3483.3796 umol/L
--- OUTSIDE RECORDS SUMMARY | 2024-10-19 11:08 | XMS_ITS | Patient Health Record ---
Author Organization [facility] Address [address] [place] [address] Care Team Providers Care Meat Clerk Name Role Phone Cordell Holden MD Primary Care Provider Vahe Bautista Unavailable [phone] Allergies No Known Allergies Reason For Referral No Information Medications Medication SIG (Take, Route, Frequency, Duration) [...] with food Orally once a day Active Immunizations Vaccine Route Administration Date Status Comme nts Influenza Unknown 01/22/2019 Administered Influenza Unknown 02/21/2023 Administered Social History Tobacco Use: Social History Observation [...] Never (0 point) Points 1 Interpretation Negative Section Notes: Nonsmoker; occasional beer. Nonsmoker; occasional beer. Problems Problem Type SNOMED Code ICD Code Onset Dates Problem Status W/U Status Risk Notes Problem 040521906 Encounter for screening for malignant neoplasm of colon (Z12.11) Active confirmed Problem 027920377 History of adenomatous polyp of colon (Z86.010) Active confirmed Problem Diverticulosis o f large intestine without perforation or abscess without bleeding (K57.30) Active confirmed Problem 800937966421407 Preprocedural examination (Z01.818) Active confirmed Problem 12217048 Rectal bleed (K62.5) Active confirmed Problem 971185211 Long-term use of aspirin therapy (Z79.82) Active confirmed Plan Of Treatment Future Test Test Name Order Date COLONOSCOPY 08/04/2019 COLONOSCOPY 03/20/2023 Insurance Providers Payer Name Payer Address Payer Phone Subscriber Number Group Number Insured Name Patient Relationship to Insured Coverage Start Date Coverage End Date MEDICARE OF [place] [address] [place] [address] [id number] KENTON GOMES Self - patient is the insured [facility] [employer] [address] [place] [address] [id number] KENTON GOMES Self - patient is the insured Medical (General) History Medical History History ICD Code 2013 [place]--1 stent placed in the RCA--was on Brilinta Elevated Cholesterol NIDDM Hx of prostate cancer-surgery as below HTN Denies CVA,Lung disease,renal disease Anxiety for panic attacks after the [place] Colonoscopy in 09/2009 with a > 1cm hyperplastic polyp removed from the proximal ascending colon Sleep apnea--not using the CPAP as he co uld not tolerate it Vertigo Colonoscopy 12/2019 with 2 tubular adeno mas removed Surgical History Surgery Date(Month/Year) Prostatectomy-2001 Pilonidal cyst Knee replacements bilateral 2020 Bilateral cataracts
--- OUTSIDE RECORDS SUMMARY | 2024-10-19 11:09 | XMS_ITS | Patient Health Record ---
Author Organization Cordell Holden MD Address [address] [place], [place] [id number] Care Team Providers Care Rice Farmer Name Role Phone Cordell Holden Primary Care Provider Allergies No Known Allergies Results Component Value Reference Range Notes Complete Blood Count Auto Di ff Reviewed date:04/26/2024 02:07:08 PM Interpretation:Jessica 04/26/24 cbc Performing Lab:[facility], [address] [place] [phone] Notes/Report: White Blood Count 5.7 4.8-10.8 X10*3/uL [...] 0.0 0.0-0.2 /100WBC Neutrophils Absolute Auto 2.3 2.0-8. 3 x10*3/uL Imm Gran Abs Auto 0.02 0.00-0.03 X10*3/uL Lymphocytes Absolute Auto 2.4 1.2-4. 9 X10*3/uL Monocytes Absolute Auto 0.6 0.1-1.2 X10*3/uL Eosinophils Absolute Auto 0.3 0.0-0. 4 X10*3/uL Basophils Absolute Auto 0.0 0.0-0.2 X10*3/uL NRBC Abs Auto 0.000 0.0-0.012 X10*3/uL Comprehensive [place]. Panel Fa st Reviewed date:04/16/2024 01:30:41 PM Interpretation: Performing Lab:[facility], [address] [place] [phone] Notes/Report: Sodium 141 135-145 mmol/L Potassium 4.4 [...] Panel Reviewed date:04/15/2024 12:14:20 PM Interpretation: Performing Lab:[facility], [address] [place] [phone] Notes/Report: Triglycerides 110 <150 mg/dL Desirable Triglyceride: [...] (Free>4and<10) Reviewed date:04/15/2024 12:32:00 PM Interpretation: Performing Lab:[address] [phone] Notes/Report: PSA,Total (Free>4and<10) < 0.10 0.00-4.00 ng/mL [...] Random Reviewed date:04/15/2024 05:37:24 PM Interpretation: Performing Lab:[facility], [address] [place] [phone] Notes/Report: Creatinine Urine 192.26 Microalbumin Urine 11.0 Microalbum/Creatinine Ratio Ur 5.7 <30 ug/mg cr Albumin/Creatinine Ratio Reference Ranges: Normal: < 30 ug/mg creatinine Microalbuminuria: 30 - 300 ug/mg creatinine Clinical Albuminuria: > 300 ug/mg creatinine Hemoglobin A1c Reviewed date:04/15/2024 12:13:12 PM Interpretation: Performing Lab:[facility], [address] [place] [phone] Notes/Report: Hemoglobin A1c % 6.9 <6.0 % [...] average glucose, using the formula of the Z9Q-Fsadjdy Average Glucose study (ADAG), Diabetes Care, Vol.31,#8, Oct. 2007 Hemoglobin A1c (Not yet revi ewed by provider) Interpretation: Performing Lab:[address] [phone] Notes/Report: Hemoglobin A1c % 6.8 <6.0 % Hemoglobin A1C Reference Range Adults: 4.8 - 6.0 % Non diabetic: < 6.0 % Goal: < 7.0 % Additional Action Suggested: > 8.0 % Note: Hemoglobin A1c results are invalid for patients with abnormal amounts of HbF. Blood transfusions may impact the HbA1c concentration in the patient sample. Estimated Average Glucose 148 eAG = Estimated average glucose which is %A1C expressed as average glucose, using the formula of the A8L-Koiiylg Average Glucose study (ADAG), Diabetes Care, Vol.31,#8, Oct. 2007 Glucose, finger stick Reviewed date:11/06/2023 01:37:09 PM Interpretation: Performing Lab: Notes/Report: Value 113 SARS-CoV2/FLU/RSV Reviewed date:01/13/2024 11:28:52 AM Interpretation: Performing Lab:[facility], [address] [place] [phone] Notes/Report: Influenza A PCR NEGATIVE Negative Influenza B PCR NEGATIVE Negative Resp Syncy Virus RNA Qual PCR NEGATIVE Negative SARS COV2 PCR INHOUSE NEGATIVE Negative All test results must be correlated with clinical findings. Negative results do not preclude SARS-CoV2, influenza A virus, influenza B virus and/or RSV infection and should not be used as the sole basis for treatment or other patient management decisions. Negative results must be combined with clinical observations, patient history, and epidemiological information. This test has not been evaluated for monitoring treatment of infection. This test has been authorized by the FDA under an Emergency Use Authorization (EUA) for use by authorized laboratories. Testing performed on the [employer] GeneXpert utilizing real-time RT-PCR. All SARS CoV2 and positive influenza A/B results are reported to [facility]. SARS-CoV2/FLU/RSV Reviewed date:01/04/2024 09:17:31 AM Interpretation: Performing Lab:[facility], [address] [place] [phone] Notes/Report: Influenza A PCR NEGATIVE Negative Influenza B PCR NEGATIVE Negative Resp Syncy Virus RNA Qual PCR NEGATIVE Negative SARS COV2 PCR INHOUSE NEGATIVE Negative All test results must be correlated with clinical findings. Negative results do not preclude SARS-CoV2, influenza A virus, influenza B virus and/or RSV infection and should not be used as the sole basis for treatment or other patient management decisions. Negative results must be combined with clinical observations, patient history, and epidemiological information. This test has not been evaluated for monitoring treatment of infection. This test has been authorized by the FDA under an Emergency Use Authorization (EUA) for use by authorized laboratories. Testing performed on the ActionX GeneXpert utilizing real-time RT-PCR. All SARS CoV2 and positive influenza A/B results are reported to [facility]. CT cervical spine wo con Reviewed date:01/02/2024 04:35:49 PM Interpretation: Performing Lab: Notes/Report: [address] [address] [address] Scan Report Signed Patient: Alex Obregon MR#: [id number] 878 : 1950 Acct:[id number] Age/Sex: 73 / M ADM Date: 01/02/24 Loc: HO.ED Attending Dr: Ordering Physician: Alexandria Mccord CNP Date of Service: 01/02/24 Procedure(s): CT cervical spine wo IV con Accession Number(s): [id number] cc: Alexandria Mccord CNP; Cordell Holden MD EXAMINATION: CT HEAD WITHOUT CONTRAST CT CERVICAL SPINE WITHOUT CONTRAST CLINICAL INFORMATION: Fall. Head injury. Pain on the left side. COMPARISON: CTA head and neck from 07/27/2020. Brain MRI from 07/27/2020. TECHNIQUE: Contiguous axial imaging was performed from the skull base to vertex without intravenous administration of contrast. Contiguous axial imaging was performed from the upper chest through the skull base without intravenous administration of contrast. Coronal and sagittal reformats were obtained at the acquisition workstation. This CT examination was performed using dose optimization techniques as appropriate, variously including the following: *Automated exposure control. *Adjustment of mA and/or kV according to patient size (this includes techniques or standardized protocols for targeted exams where dose is matched to indication/reason for exam; i.e. extremities or head). *Use of iterative reconstruction technique. DLP: 1364 mGy-cm FINDINGS: Head: There is no evidence of acute intracranial hemorrhage or edematous territorial infarction. Ortiz-white matter differentiation is preserved. A few foci of hypoattenuation in the periventricular and deep white matter are consistent with mild microangiopathy. Proportional prominence of the ventricles and sulcal spaces without evidence of obstructive hydrocephalus. No abnormal mass effect or midline shift. No extra-axial fluid collections. Calcific atherosclerotic disease of the intracranial internal carotid and vertebral arteries. No hyperdense vessel sign. Soft tissue laceration and subgaleal hematoma along the left parietal bone, measuring up to 0.3 cm in depth. No associated acute osseous abnormalities. Prior malleable plate and screw fixation of the left inferior orbital rim and zygomaticofrontal suture. Mild mucosal thickening of the paranasal sinuses. The mastoid air cells and middle ear cavities are clear. Cervical Spine: The atlantooccipital and atlantoaxial articulations remain well aligned. Advanced degenerative arthropathy of the atlantodental articulation. Reversal the normal cervical lordosis centered on C5-C6. Mild degenerative anterolisthesis of C4 on C5. Otherwise, there is anatomic alignment of the vertebral bodies and posterior elements. No evidence of acute fracture or subluxation. The vertebral body heights are maintained . Advanced degenerative disc disease from C5-T1. Facet and uncovertebral joint arthropathy leads to osseous encroachment on the neural foramina from C3-T1. There is no prevertebral soft tissue swelling. The thyroid gland and remaining cervical soft tissues are within normal limits. The lung apices demonstrate no abnormalities. CT/CT cervical spine wo IV con IMPRESSION: 1. No evidence of acute intracranial hemorrhage or edematous territorial infarction. Mild underlying microangiopathy and generalized cerebral volume loss. 2. No evidence of acute fracture or traumatic subluxation of the cervical spine. Moderate multilevel degenerative spondyloarthropathy of the cervical spine. 3. Left parietal scalp laceration and small subgaleal hematoma. No associated osseous abnormalities. Electronically signed by: Jerrod Davila DO 01/02/2024 03:21 PM EDT Dictated By: Jose Davila DO Signed By: <Electronically signed by Jose Davila DO in OV> 01/02/24 1521 DD/ 1340 TD/TT: 01/02/24 1358 Manager Quality Systems: MADI [address] [address] [address] Scan Report Signed Patient: Viry Obregon MR#: [id number] 878 : 1950 Acct:[id number] Age/Sex: 73 / M ADM Date: 01/02/24 Loc: HO.ED Attending Dr: Ordering Physician: Alexandria Mccord CNP Date of Service: 01/02/24 Procedure(s): CT cer vical spine wo IV con Accession Number(s): [id number] cc: Alexandria Mccord CNP; Cordell Holden MD EXAMINATION: CT HEAD WITHOUT CONTRAST CT CERVICAL SPINE WI THOUT CONTRAST CLINICAL INFORMATION: Fall. Head injury. P ain on the left side. COMPARISON: CTA head and neck fr om 07/27/2020. Brain MRI from 07/27/2020. TECHNIQUE: Contiguous axial bety ging was performed from the skull base to vertex without intravenous administration of contrast. Contiguous axial imaging was performe d from the upper chest through the skull base without intravenous administration of contrast. Coronal and sagittal reformats were obtai harleen at the acquisition workstation. This CT examination was performed using dose optimization techniques as appropriate, various ly including the following: *Automated exposure control. *Adjustment of mA an d/or kV according to patient size (this includes techniques or standardized protocols for targeted exams where dose is matched to indication/reason for exam; i.e. extremities or head). *Use of iterative reconstruction technique. DLP: 1364 mGy-cm FINDINGS: Head: There is no evidence of acute intracranial hemorrhage or edematous territorial infarcti on. Ortiz-white matter differentiation is preserved. A few foci of hypoattenuation in the periventricular and deep white matter are consisten t with mild microangiopathy. Proportional prominence of the ventricles and sulcal spaces without evidence of obstructive hydrocephalus. No abnormal mass effect or midline shift. No extra-axial fluid collections. Calcific atherosclerotic disease of the intracranial interna l carotid and vertebral arteries. No hyperdense vessel sign. Soft tissue lacerati on and subgaleal hematoma along the left parietal bone, measuring up t o 0.3 cm in depth. No associated acute osseous abnormalities. Prior malleable plate and screw fixation of the left inferior orbital rim and zygomaticofrontal suture. Mild mucosal thickening of the paranasal sinuses. The mastoid air cells and middle ear cavities are clear. Cervical Spine: The atlantooccipital and atlantoaxial articulations remain well aligned. Advanced degenerative arthropathy of the atlantodental articulation. Revers al the normal cervical lordosis centered on C5-C6. Mild degenerative anterolisthesis of C4 on C5. Otherwise, there is anatomic alignment o f the vertebral bodies and posterior elements. No evidence of acute fracture or subluxation. The vertebral body heights are maintained . Adv anced degenerative disc disease from C5-T1. Facet and uncovertebral rina int arthropathy leads to osseous encroachment on the neural foramina from C3-T1. There is no prevertebral soft tissue swelling. The thyroid gland an d remaining cervical soft tissues are within normal limits. The lung api delia demonstrate no abnormalities. C T/CT cervical spine wo IV con IMPRESSION: 1. No evidence of ac [place] intracranial hemorrhage or edematous territorial infarcti on. Mild underlying microangiopathy and generalized cerebral volume loss. 2. No evidence of ac [place] fracture or traumatic subluxation of the cervical spine. Mode rate multilevel degenerative spondyloarthropathy of the cervical spine. 3. Left parietal sca lp laceration and small subgaleal hematoma. No associated osseous abnormalities. Electronically landon d by: Jerrod Davila DO 01/02/2024 03:21 PM EDT Dictated By: Cherri Davila DO Signed By: <Electronically signed by Jose Davila DO in OV> 01/02/24 1521 DD/ 1340 TD/TT: 01/02/24 1358 Manager Quality Systems: MADI CT head/brain wo con Reviewed date:01/02/2024 04:35:27 PM Interpretation: Performing Lab: Notes/Report: [address] [address] [address] Scan Report Signed Patient: Alex Obregon MR#: [id number] 878 : 1950 Acct:[id number] Age/Sex: 73 / M ADM Date: 01/02/24 Loc: HO.ED Attending Dr: Ordering Physician: Alexandria Mccord CNP Date of Service: 01/02/24 Procedure(s): CT head/brain wo IV con Accession Number(s): [id number] cc: Alexandria Mccord CNP; Cordell Holden MD EXAMINATION: CT HEAD WITHOUT CONTRAST CT CERVICAL SPINE WITHOUT CONTRAST CLINICAL INFORMATION: Fall. Head injury. Pain on the left side. COMPARISON: CTA head and neck from 07/27/2020. Brain MRI from 07/27/2020. TECHNIQUE: Contiguous axial imaging was performed from the skull base to vertex without intravenous administration of contrast. Contiguous axial imaging was performed from the upper chest through the skull base without intravenous administration of contrast. Coronal and sagittal reformats were obtained at the acquisition workstation. This CT examination was performed using dose optimization techniques as appropriate, variously including the following: *Automated exposure control. *Adjustment of mA and/or kV according to patient size (this includes techniques or standardized protocols for targeted exams where dose is matched to indication/reason for exam; i.e. extremities or head). *Use of iterative reconstruction technique. DLP: 1364 mGy-cm FINDINGS: Head: There is no evidence of acute intracranial hemorrhage or edematous territorial infarction. Ortiz-white matter differentiation is preserved. A few foci of hypoattenuation in the periventricular and deep white matter are consistent with mild microangiopathy. Proportional prominence of the ventricles and sulcal spaces without evidence of obstructive hydrocephalus. No abnormal mass effect or midline shift. No extra-axial fluid collections. Calcific atherosclerotic disease of the intracranial internal carotid and vertebral arteries. No hyperdense vessel sign. Soft tissue laceration and subgaleal hematoma along the left parietal bone, measuring up to 0.3 cm in depth. No associated acute osseous abnormalities. Prior malleable plate and screw fixation of the left inferior orbital rim and zygomaticofrontal suture. Mild mucosal thickening of the paranasal sinuses. The mastoid air cells and middle ear cavities are clear. Cervical Spine: The atlantooccipital and atlantoaxial articulations remain well aligned. Advanced degenerative arthropathy of the atlantodental articulation. Reversal the normal cervical lordosis centered on C5-C6. Mild degenerative anterolisthesis of C4 on C5. Otherwise, there is anatomic alignment of the vertebral bodies and posterior elements. No evidence of acute fracture or subluxation. The vertebral body heights are maintained . Advanced degenerative disc disease from C5-T1. Facet and uncovertebral joint arthropathy leads to osseous encroachment on the neural foramina from C3-T1. There is no prevertebral soft tissue swelling. The thyroid gland and remaining cervical soft tissues are within normal limits. The lung apices demonstrate no abnormalities. CT/CT head/brain wo IV con IMPRESSION: 1. No evidence of acute intracranial hemorrhage or edematous territorial infarction. Mild underlying microangiopathy and generalized cerebral volume loss. 2. No evidence of acute fracture or traumatic subluxation of the cervical spine. Moderate multilevel degenerative spondyloarthropathy of the cervical spine. 3. Left parietal scalp laceration and small subgaleal hematoma. No associated osseous abnormalities. Electronically signed by: Jerrod Davila DO 01/02/2024 03:21 PM EDT Dictated By: Jose Davila DO Signed By: <Electronically signed by Jose Davila DO in OV> 01/02/24 1521 DD/ 1340 TD/TT: 01/02/24 1359 Manager Quality Systems: MADI [address] [address] [address] Scan Report Signed Patient: Viry Obregon MR#: [id number] 878 : 1950 Acct:[id number] Age/Sex: 73 / M ADM Date: 01/02/24 Loc: HO.ED Attending Dr: Ordering Physician: Alexandria Mccord CNP Date of Service: 01/02/24 Procedure(s): CT head/brain wo IV con Accession Number(s): [id number] cc: Alexandria Mccord CNP; Cordell Holden MD EXAMINATION: CT HEAD WITHOUT CONTRAST CT CERVICAL SPINE WI THOUT CONTRAST CLINICAL INFORMATION: Fall. Head injury. P ain on the left side. COMPARISON: CTA head and neck fr om 07/27/2020. Brain MRI from 07/27/2020. TECHNIQUE: Contiguous axial bety ging was performed from the skull base to vertex without intravenous administration of contrast. Contiguous axial imaging was performe d from the upper chest through the skull base without intravenous administration of contrast. Coronal and sagittal reformats were obtai harleen at the acquisition workstation. This CT examination was performed using dose optimization techniques as appropriate, various ly including the following: *Automated exposure control. *Adjustment of mA an d/or kV according to patient size (this includes techniques or standardized protocols for targeted exams where dose is matched to indication/reason for exam; i.e. extremities or head). *Use of iterative reconstruction technique. DLP: 1364 mGy-cm FINDINGS: Head: There is no evidence of acute intracranial hemorrhage or edematous territorial infarcti on. Ortiz-white matter differentiation is preserved. A few foci of hypoattenuation in the periventricular and deep white matter are consisten t with mild microangiopathy. Proportional prominence of the ventricles and sulcal spaces without evidence of obstructive hydrocephalus. No abnormal mass effect or midline shift. No extra-axial fluid collections. Calcific atherosclerotic disease of the intracranial interna l carotid and vertebral arteries. No hyperdense vessel sign. Soft tissue lacerati on and subgaleal hematoma along the left parietal bone, measuring up t o 0.3 cm in depth. No associated acute osseous abnormalities. Prior malleable plate and screw fixation of the left inferior orbital rim and zygomaticofrontal suture. Mild mucosal thickening of the paranasal sinuses. The mastoid air cells and middle ear cavities are clear. Cervical Spine: The atlantooccipital and atlantoaxial articulations remain well aligned. Advanced degenerative arthropathy of the atlantodental articulation. Revers al the normal cervical lordosis centered on C5-C6. Mild degenerative anterolisthesis of C4 on C5. Otherwise, there is anatomic alignment o f the vertebral bodies and posterior elements. No evidence of acute fracture or subluxation. The vertebral body heights are maintained . Adv anced degenerative disc disease from C5-T1. Facet and uncovertebral rina int arthropathy leads to osseous encroachment on the neural foramina from C3-T1. There is no prevertebral soft tissue swelling. The thyroid gland an d remaining cervical soft tissues are within normal limits. The lung api delia demonstrate no abnormalities. C T/CT head/brain wo IV con IMPRESSION: 1. No evidence of ac [place] intracranial hemorrhage or edematous territorial infarcti on. Mild underlying microangiopathy and generalized cerebral volume loss. 2. No evidence of ac [place] fracture or traumatic subluxation of the cervical spine. Mode rate multilevel degenerative spondyloarthropathy of the cervical spine. 3. Left parietal sca lp laceration and small subgaleal hematoma. No associated osseous abnormalities. Electronically landon d by: Jerrod Davila DO 01/02/2024 03:21 PM EDT RP Dictated By: Cherri Davila Signed By: <Electronically signed by Jose Davila DO in OV> 01/02/24 1521 DD/ 1340 TD/TT: 01/02/24 1359 Manager Quality Systems: MADI XR knee RT 4V Reviewed date:01/05/2024 10:54:10 AM Interpretation: Performing Lab: Notes/Report: [address] [address] XRay Report Signed Patient: Alex Obregon MR#: [id number] 878 : 1950 Acct:[id number] Age/Sex: 73 / M ADM Date: 01/02/24 Loc: HO.ED Attending Dr: Ordering Physician: Alexandria Mccord CNP Date of Service: 01/02/24 Procedure(s): XR knee RT 4V Accession Number(s): [id number] cc: Alexandria Mccord CNP; Cordell Holden MD EXAMINATION: XR KNEE, RIGHT CLINICAL INFORMATION: Fall. Pain. History of replacement. COMPARISON: Right knee films dated 10/10/2015. TECHNIQUE: Four views of the right knee performed on 5 images. FINDINGS: The patient is status post total right knee arthroplasty with the prosthetic components well seated within the [place] bone. No evidence of hardware or [place] bone fracture is seen. There is some bone lucency seen in the lateral femoral condyle and the lateral tibial plateau, both deep to the prosthesis, raising the suspicion of either loosening or subtle foreign body reaction. The 4 previously seen well-corticated loose bodies within the posterior aspect of the knee are again noted, unchanged. XR/XR knee RT 4V IMPRESSION: 1. No evidence of hardware or [place] bone fracture. 2. There is subtle bone lucency in the lateral femoral condyle and lateral tibial plateau, both deep to the prosthesis, raising the suspicion of either loosening or subtle foreign body reaction. 3. Multiple loose bodies are again seen within the posterior aspect of the knee, unchanged. Electronically signed by: Kenia Mendoza MD 01/02/2024 05:06 PM EDT Dictated By: Kenia Mendoza MD Signed By: <Electronically signed by Kenia Mendoza MD in OV> 01/02/24 1706 DD/ 1330 TD/TT: 01/02/24 1330 Manager Quality Systems: [place] [address] XRay Report Signed Patient: Viry Obregon MR#: [id number] 878 : 1950 Acct:[id number] Age/Sex: 73 / M ADM Date: 01/02/24 Loc: HO.ED Attending Dr: Ordering Physician: Alexandria Mccord CNP Date of Service: 01/02/24 Procedure(s): XR kne e RT 4V Accession Number(s): [id number] cc: Alexandria Mccord CNP; Cordell Holden MD EXAMINATION: XR KNEE, RIGHT CLINICAL INFORMATION: Fall. Pain. History of replacement. COMPARISON: Right knee films rahat ed 10/10/2015. TECHNIQUE: Four views of the ri ght knee performed on 5 images. FINDINGS: The patient is statu s post total right knee arthroplasty with the prosthetic component s well seated within the [place] bone. No evidence of hardware or nativ e bone fracture is seen. There is some bone lucency seen in the lateral femoral condyle and the lateral tibial plateau, both deep to the prosthesis, raising the suspicion of either loosening or subtle foreign jeni dy reaction. The 4 previously seen well-corticated loose bodies within the posterior aspect of the knee are again noted, unchanged. X R/XR knee RT 4V IMPRESSION: 1. No evidence of hardware or [place] bone fracture. 2. There is subtle b one lucency in the lateral femoral condyle and lateral tibial plate au, both deep to the prosthesis, raising the suspicion of either loosening or subtle foreign body reaction. 3. Multiple loose jeni dies are again seen within the posterior aspect of the knee, unchanged. Electronically landon d by: Kenia Mendoza MD 01/02/2024 05:06 PM EDT RP Dictated By: Miriam Mendoza MD Signed By: <Electronically signed by Kenia Mendoza MD in OV> 01/02/24 1706 DD/ 1330 TD/TT: 01/02/24 1330 Manager Quality Systems: ANETA CORONEL CC w/rflx Micro + Cult Reviewed date:04/15/2024 05:37:02 PM Interpretation: Performing Lab:[facility], [address] [place] [id number] Notes/Report: [id number] Urine, Clean Catch Color Urine Yellow Appearance Urine Clear PH 5.5 5.0-9.0 Glucose Urine UA Negative Negative mg/dL Urine Blood Negative Negative Specific [place] - Urine 1.020 1.005-1.025 Urine Protein Negative Neg-Trace mg/dL Urine Ketones Negative Negative mg/dL Nitrite Urine Negative Negative Leukocyte Esterase Urine Negative Negative Hold Gold (Not yet reviewed by provider) Interpretation: Performing Lab:[address] [id number] Notes/Report: Hold Gold See Note Specimen held untested for 24 hours; Call to request Chemistry testing. Reason For Referral No Information Medications Medication SIG (Take, Route, Frequency, Duration) Notes Start Date End Date Status Aspir-81 81 MG 1 tablet Orally Once a day for 90 days Active LORazepam 0.5 MG 1 tab Orally Once a day as needed for 30 days 09/20/2024 Active Diprolene AF 0.05 % 1 application to aff ected area Externally Once a day for 30 days 05/12/2018 Active metFORMIN HCl 500 MG take 1 tablet by [facility] twice a day with a meal Orally twice a day Active Atorvastatin Calcium 80 MG TAKE 1 TABLET BY MOUTH EVERY DAY FOR 90 DAYS Active Metoprolol Succinate ER 25 MG 1 tablet Orally Once a day for 90 days Active Citalopram Hydrobromide 20 MG take 1 tablet by mouth every day Orally Once a day Active Immunizations Vaccine Route Administration Date Status Comme nts Fluarix Quadrivalent IM Intramuscular 02/03/2018 Administe red Prevnar 13 IM Intramuscular 02/26/2018 Administered Fluarix Quadrivalent IM Intramuscular 12/01/2018 Administe red PPSV23 (Pnemovax) IM Intramuscular 05/31/2019 Administered Fluarix Quadrivalent IM Intramuscular 01/10/2020 Administe red SARS-COV-2 Pfizer Unknown 06/14/2020 Administered SARS-COV-2 Pfizer Unknown 07/05/2020 Administered SARS-COV-2 Pfizer Unknown 01/27/2021 Administered [facility] Fluarix Quadrivalent IM Intramuscular 03/20/2021 Administe red Fluarix Quadrivalent IM Intramuscular 02/22/2022 Administe red Influenza High Dose IM Intramuscular 02/27/2023 Administer ed SARS-COV-2 Pfizer Unknown 03/14/2023 Administered Influenza High Dose IM Intramuscular 01/13/2024 Administer ed Social History Tobacco Use: Social History Observation [...] Never (0 point) Points 1 Interpretation Negative Problems Problem Type SNOMED Code ICD Code Onset Dates Problem Status W/U Status Risk Notes Problem 108225277 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) Active confirmed Problem 71325128 Anxiety (F41.9) Active confirmed Problem 828535069 Type 2 diabetes mellitus with diabetic neuropathy, unspecified (E11.40) Active confirmed Problem 6709322 Primary insomnia (F51.01) Active confirmed Problem 1542506 Psoriasis (L40.9) Active confirmed Problem 354341727 Low HDL (under 40) (E78.6) Active confirmed Problem 97711770 Type 2 diabetes, controlled, with neuropathy (E11.40) Active confirmed Problem 132506726 History of prostate cancer (Z85.46) Active confirmed Problem 000143305 History of myocardial infarction (I25.2) Active confirmed Problem [id number] Bilateral carpal tunnel syndrome (G56.03) Active confirmed Problem 52869155 SLY (obstructive sleep apnea) (G47.33) Active confirmed Problem 283270722 Arthritis of knee (M17.10) Active confirmed Problem 972743360 Type 2 diabetes mellitus without complication, without long-term current use of insulin (E11.9) Active confirmed Problem 727847498 Acute eczema (L30.9) Active confirmed Problem Obese class I (finding) (799543450755875) Obesity (BMI 30.0-34.9) (E66.9) Active confirmed Problem 441177387 Status post placement of bare metal coronary artery stent (Z95.5) Active confirmed Problem 464770549 Age-related incipient cataract of both eyes (H25.093) Active confirmed Vital Signs Blood pressure diastolic 72 mm Hg 04/26/2024 ludy ght is down 4 pounds since 02-09-24 Height 67.5 in 04/26/2024 weight is down 4 pounds since 02-09-24 Blood pressure systolic 124 mm Hg 04/26/2024 weig ht is down 4 pounds since 02-09-24 Weight 221 lbs 04/26/2024 weight is down 4 pounds since 02-09-24 BMI 34.1 kg/m2 04/26/2024 weight is down 4 pounds since 02-09-24 Encounters Encounter Location Date Provider Diagnosis Cordell Holden MD [address] [place], [place] [id number] 04/15/2024 Cordell Holden Low HDL (under 40) E78.6 and Type 2 diabetes mellitus with diabetic neuropathy, unspecified E11.40 Cordell Holden MD [address] [place] [id number] 10/19/2024 Cordell Holden Type 2 diabetes mellitus without complication, without long-term current use of insulin E11.9 and Low HDL (under 40) E78.6 Cordell Holden MD [address] [place] [id number] 11/06/2023 Cordell Holden Type 2 diabetes mellitus without complication, without long-term current use of insulin E11.9 ; History of myocardial infarction I25.2 and SOB (shortness of breath) R06.02 Cordell Holden MD [address] [id number] 01/13/2024 Cordell Holden COVID-19 U07.1 ; Laceration of scalp, subsequent encounter S01.01XD ; Type 2 diabetes mellitus without complication, without long-term current use of insulin E11.9 and Encounter for administration of vaccine Z23 Cordell Holden MD [address] [place] [id number] 02/09/2024 Cordell Holden Status post fall Z91.81 Cordell Holden MD [address] [id number] 04/26/2024 Cordell Holden Type 2 diabetes mellitus without complication, without long-term current use of insulin E11.9 ; Bilateral carpal tunnel syndrome G56.03 ; Status post placement of bare metal coronary artery stent Z95.5 ; Anxiety F41.9 ; Low HDL (under 40) E78.6 ; Colon cancer screening Z12.11 and Depression screening Z13.31 Cordell Holden MD [address] [place] [id number] 01/06/2024 Cordell Holden MD [address] [id number] 02/06/2024 Cordell Holden MD [address] [id number] 02/26/2024 Cordell Holden Type 2 diabetes mellitus without complication, without long-term current use of insulin E11.9 Cordell Holden MD [address] [id number] 04/30/2024 Cordell Holden Colon cancer screeni Z12.11 Cordell Holden MD [address] [place], [place] [id number] 09/20/2024 Cordell Holden Type 2 diabetes mellitus without complication, without long-term current use of insulin E11.9 Assessments Encounter Date Diagnosis (ICD Code) Assessment Notes Treatment Notes Treatment Clinical Notes Section Notes 04/15/2024 Low HDL (under 40) (ICD-10 - E78.6) 04/15/2024 Type 2 diabetes mellitus with diabetic neuropathy, unspecified (ICD-10 - E11.40) 10/19/2024 Type 2 diabetes mellitus without complication, without long-term current use of insulin (ICD-10 - E11.9) 11/06/2023 Type 2 diabetes mellitus without complication, without long-term current use of insulin (ICD-10 - E11.9) stable, will contiue current regiment 01/13/2024 COVID-19 (ICD-10 - U07.1) Order faxed to Patient Reg at [facility]. Patient to have done before coming in this afternoon. covid negative 01/13/2024 Laceration of scalp, subsequent encounter (ICD-10 - S01.01XD) is healing nicely. 02/09/2024 Status post fall (ICD-10 - Z91.81) he has fallen and hit his leg and head from a high distance. he is having no issues with either and actually spent 2 weeks in [place] with no problems. is going to cut back on his work but not due to the injuryh just he wants to work less and will give him a return to work note 04/26/2024 Type 2 diabetes mellitus without complication, without long-term current use of insulin (ICD-10 - E11.9) 04/26/2024 Bilateral carpal tunnel syndrome (ICD-10 - G56.03) not bad enough to treat 02/26/2024 Type 2 diabetes mellitus without complication, without long-term current use of insulin (ICD-10 - E11.9) 04/30/2024 Colon cancer screening (ICD-10 - Z12.11) 09/20/2024 Type 2 diabetes mellitus without complication, without long-term current use of insulin (ICD-10 - E11.9) 10/19/2024 Low HDL (under 40) (ICD-10 - E78.6) 11/06/2023 History of myocardial infarction (ICD-10 - I25.2) need results from stress test and consult from dr lobo. getting an echo next week/ had to switch to the chemical stress test./ REQUEST MADE FOR MEDICAL RECORDS FOR CARDIOLOGY OFFICE 11/06/2023 SOB (shortness of breath) (ICD-10 - R06.02) have received the stress test and it appears that he is just out of shape and over weight. have advised him to continue the diet and lose 30 pounds 01/13/2024 Type 2 diabetes mellitus without complication, without long-term current use of insulin (ICD-10 - E11.9) is cause of the numbness in foot. was there before his fall 04/26/2024 Status post placement of bare metal coronary artery stent (ICD-10 - Z95.5) 01/13/2024 Encounter for administration of vaccine (ICD-10 - Z23) 04/26/2024 Anxiety (ICD-10 - F41.9) doing well, will continue current regiment 04/26/2024 Low HDL (under 40) (ICD-10 - E78.6) stable, will contnue current regiment 04/26/2024 Colon cancer screening (ICD-10 - Z12.11) no stool, sent home with cards, will return to office 04/26/2024 Depression screening (ICD-10 - Z13.31) negative screen Plan Of Treatment Pending Test Test Name Order Date Liver Panel 10/19/2024 Glucose Fasting 10/19/2024 Lipid Panel with Reflex 10/19/2024 Hold Gold 10/19/2024 Hemoglobin A1c 10/19/2024 Next Appt Details Provider Name:Cordell cintron, 11/02/2024 01:30:00 PM, [address] [place] [address], [address], [place], [place], [phone], Provider Name:Cordell cintron, 04/22/2025 07:45:00 AM, [address] [place] [address], [address], [place], [place], [phone], Provider Name:Cordell cintron, 04/29/2025 01:00:00 PM, [address], [address], [place], [place], [phone], Insurance Providers Payer Name Payer Address Payer Phone Subscriber Number Group Number Insured Name Patient Relationship to Insured Coverage Start Date Coverage End Date [employer] [address] [place] [address] [id number] Alex Obrgeon Self - patient is the insured [facility] [address] [place] [address] [id number] Alex Obregon Self - patient is the insured Medical (General) History Medical History History ICD Code radical prostatectomy 2001 myocardial infarction 2013 Colonoscopy due in 2019; Col onoscopy booked for 12/27/[address] Schreiber done DUE IN 5 YEARS tubular adenomas06/06/23 colonoscopy repeat 3 y
[2024-10-19 12:15] LABS: Reflex LDLD? No
== END 2024-10-19 10:17 | disposition home or self-care (01) ==
LOC: HO.LNP 10:16
PROVIDERS: Visit Provider Internal Medicine
DX: E11.9 Type 2 diabetes mellitus without complications (principal); E78.6 Lipoprotein deficiency
CPT/HCPCS: 80061; 80076; 82947; 83036